=== PATIENT | male | born 1950 | race Caucasian/White ===

== ENCOUNTER 2018-06-20 11:07 | Inpatient (IN) | payer MEDICARE ==
[~2018-06-20] VITALS: Ht 160 cm; Wt 61.0 kg
[~2018-06-20 11:07] MED LIST: ACE325 PO; AUG875 PO; CALC500T42 PO; MULT-820 PO; NIC21T TD; OXYC20TA86 PO; PER PO; PRED-314 PO
--- NOTE | 2018-06-20 11:15 | ER Report ---
History and Physical Time Seen By MD: 11:15 HPI/ROS CHIEF COMPLAINT: Cough and shortness of breath HISTORY OF PRESENT ILLNESS: This is a 67-year-old male who presents to emergency department for a cough and shortness of breath. Patient states that over the last 3 weeks he's had increased shortness of breath, with a moist and nonproductive cough. Decreased energy, loss of appetite, or last several days he's had increased swelling in his lower extremities. He has a history of alcohol abuse however he has almost completely eliminated alcohol, he is also cut back on smoking cigarettes, he was a one pack a day for 40 years, now smokes about 2-2-1/2 packs per week. He is very cachectic appearing, working hard to breathe, using accessory muscles. Speaking in 4-5 word sentences. He denies fevers or chills. No rashes. No headaches. Denies chest pain. REVIEW OF SYSTEMS: Constitutional: No fever, no chills. Eyes: No discharge. ENT: No sore throat. Cardiovascular: No chest pain, no palpitations. Respiratory: As above. Gastrointestinal: No abdominal pain, no vomiting. Genitourinary: No hematuria. Musculoskeletal: No back pain. Skin: No rashes. Neurological: No headache. Allergies: Coded Allergies: No Known Drug Allergies (Verified , 01/28/17) Home Meds Reported Medications Fluticasone Prop 50 Mcg Ns (FLONASE 50 MCG NS) 16 Gm [place].susp, 1 SPRAY NS BID, BOT 06/20/18 Past Medical/Surgical History The patient has a past medical and surgical history of headaches, heavy smoking history, pneumonia, no diagnosis of COPD thus far, slow urinary stream, arthritis, numbness down both legs due to an injury, dentures, wears glasses, history of alcohol abuse however very minimal alcohol intake currently, ulnar nerve transposition, back surgery, tonsillectomy. Reviewed Nurses Notes: Yes Hx Smoking: Yes Smoking Status: Current: Every Day Smoker Hx Substance Use Disorder: No Hx Alcohol Use: Yes Constitutional Vital Sign - Last 24 Hours 06/20/18 06/20/18 06/20/18 06/20/18 11:07 11:13 11:13 11:16 Temp 97.9 Pulse ??? 118 Resp 30 B/P (MAP) 118/110 118/110 (113) 105/91 (96) Pulse Ox 78 O2 Delivery Room Air 06/20/18 06/20/18 06/20/18 06/20/18 11:22 11:30 11:31 11:37 Pulse 118 116 Resp 29 35 B/P (MAP) 105/87 (93) Pulse Ox 98 93 O2 Flow Rate 2.0 06/20/18 06/20/18 06/20/18 06/20/18 11:38 11:38 11:47 11:52 Pulse 121 118 Resp 24 B/P (MAP) 112/94 (100) Pulse Ox 89 100 O2 Delivery Nasal Cannula O2 Flow Rate 1.5 06/20/18 06/20/18 06/20/18 06/20/18 12:00 12:07 12:22 12:30 Pulse 112 111 107 Resp 18 25 27 B/P (MAP) 125/98 (107) Pulse Ox 88 95 94 Physical Exam General Appearance: The patient is alert, has no immediate need for airway protection and no signs of toxicity, working hard to breathe. Eyes: Pupils equal and round no pallor or injection. ENT, Mouth: Mucous membranes are dry. Respiratory: Diminished throughout, very faint end expiratory wheezes in the upper lobes. Using accessory muscles to breathe, strep throat clavicular and intercostal retractions. Cardiovascular: Regular rate and rhythm, distant, no murmurs, clicks or rubs. Gastrointestinal: Abdomen is soft and non tender, no masses, bowel sounds normal. Neurological: Alert and oriented 4. Moving all extremities. Following all commands. No focal neuro deficits. Skin: Warm and dry, no rashes. Musculoskeletal: Neck is supple non tender. Extremities are nontender, nonswollen and have full range of motion. DIFFERENTIAL DIAGNOSIS: After history and physical exam differential diagnosis was considered for shortness of breath including but not limited to pulmonary infectious process, COPD, asthma, pulmonary embolus and congestive heart failure. Medical Decision Making Data Points Result Diagram: 06/20/18 0000 06/20/18 0000 Laboratory Hematology Test 06/20/18 00:00 Red Blood Count 4.84 M/uL (4.00-5.60) Mean Corpuscular Volume 98.5 fL (80.0-96.0) Mean Corpuscular Hemoglobin 32.6 pg (26.0-33.0) Mean Corpuscular Hemoglobin Concent 33.1 g/dL (32.0-36.0) Red Cell Distribution Width 14.3 % (11.5-14.5) Mean Platelet Volume 7.2 fL (7.2-11.1) Neutrophils (%) (Auto) 81.1 % (39.4-72.5) Lymphocytes (%) (Auto) 10.4 % (17.6-49.6) Monocytes (%) (Auto) 7.8 % (4.1-12.4) Eosinophils (%) (Auto) 0.1 % (0.4-6.7) Basophils (%) (Auto) 0.6 % (0.3-1.4) Nucleated RBC Relative Count (auto) 0.0 /100WBC Neutrophils # (Auto) 9.5 K/uL (2.0-7.4) Lymphocytes # (Auto) 1.2 K/uL (1.3-3.6) Monocytes # (Auto) 0.9 K/uL (0.3-1.0) Eosinophils # (Auto) 0.0 K/uL (0.0-0.5) Basophils # (Auto) 0.1 K/uL (0.0-0.1) Nucleated RBC Absolute Count (auto) 0.00 K/uL Sodium Level 123 mmol/L (137-145) Potassium Level 5.1 mmol/L (3.5-5.0) Chloride Level 87 mmol/L (98-107) Carbon Dioxide Level 29 mmol/L (22-30) Blood Urea Nitrogen 22 mg/dl (9-21) Creatinine 0.70 mg/dl (0.66-1.25) Glomerular Filtration Rate Calc > 60.0 Random Glucose 131 mg/dl (75-110) Lactate 2.6 mmol/L (0.7-2.1) Calcium Level 9.0 mg/dl (8.4-10.2) Total Bilirubin 1.1 mg/dl (0.2-1.3) Aspartate Amino Transf (AST/SGOT) 31 U/L (0-35) Alanine Aminotransferase (ALT/SGPT) 19 U/L (0-56) Alkaline Phosphatase 74 U/L (0-126) Troponin I 0.034 ng/ml B-Type Natriuretic Peptide 790 pg/ml (0-100) Total Protein 6.8 g/dl (6.3-8.2) Albumin 4.3 g/dl (3.5-5.0) Chemistry Test 06/20/18 00:00 White Blood Count 11.7 k/uL (4.5-11.0) Red Blood Count 4.84 M/uL (4.00-5.60) Hemoglobin 15.8 g/dL (14.0-18.0) Hematocrit 47.7 % (42.0-52.0) Mean Corpuscular Volume 98.5 fL (80.0-96.0) Mean Corpuscular Hemoglobin 32.6 pg (26.0-33.0) Mean Corpuscular Hemoglobin Concent 33.1 g/dL (32.0-36.0) Red Cell Distribution Width 14.3 % (11.5-14.5) Platelet Count 190 K/uL (150-450) Mean Platelet Volume 7.2 fL (7.2-11.1) Neutrophils (%) (Auto) 81.1 % (39.4-72.5) Lymphocytes (%) (Auto) 10.4 % (17.6-49.6) Monocytes (%) (Auto) 7.8 % (4.1-12.4) Eosinophils (%) (Auto) 0.1 % (0.4-6.7) Basophils (%) (Auto) 0.6 % (0.3-1.4) Nucleated RBC Relative Count (auto) 0.0 /100WBC Neutrophils # (Auto) 9.5 K/uL (2.0-7.4) Lymphocytes # (Auto) 1.2 K/uL (1.3-3.6) Monocytes # (Auto) 0.9 K/uL (0.3-1.0) Eosinophils # (Auto) 0.0 K/uL (0.0-0.5) Basophils # (Auto) 0.1 K/uL (0.0-0.1) Nucleated RBC Absolute Count (auto) 0.00 K/uL Glomerular Filtration Rate Calc > 60.0 Lactate 2.6 mmol/L (0.7-2.1) Calcium Level 9.0 mg/dl (8.4-10.2) Total Bilirubin 1.1 mg/dl (0.2-1.3) Aspartate Amino Transf (AST/SGOT) 31 U/L (0-35) Alanine Aminotransferase (ALT/SGPT) 19 U/L (0-56) Alkaline Phosphatase 74 U/L (0-126) Troponin I 0.034 ng/ml B-Type Natriuretic Peptide 790 pg/ml (0-100) Total Protein 6.8 g/dl (6.3-8.2) Albumin 4.3 g/dl (3.5-5.0) EKG/Imaging EKG Interpretation 12 lead EKG: Time of EKG 1124. Rhythm: Sinus tachycardia, ventricular rate 116 bpm. [place]: normal QRS: normal ST segments: No ST depression or elevation identified. Significant amount of artifact. No previous EKGs for comparison. Imaging Location: [facility] Patient: Winston Morrison : 1950 Visit/Account:[id number] Date of Sevice: 06/20/2018 Single view of the chest Indication: Dyspnea. Comparison: X-ray examination of the chest January 28, 2017 Findings: Heart size within normal limits. Pulmonary hyperinflation with relative lucency indicative of changes from emphysema. Blunting is seen of the costophrenic sulci bilaterally, unchanged and could represent pleural thickening at the right base. No definite effusion or pneumothorax. No acute bony finding. IMPRESSION: 1. Stable parenchymal changes from emphysema without change or acute finding. Report Dictated By: Joel Sargent MD at 06/20/2018 12:05 PM Report E-Signed By: Joel Sargent MD at 06/20/2018 12:06 PM WSN:[facility] ED Course/Re-evaluation Clinical Indication for ER IV: IV Access ED Course The patient was admitted to room. A history and physical were obtained. Differential diagnoses were considered. An IV was started. A CBC, CMP, troponin, BNP were obtained.CBC showing white count of 11.7 with a left shift, chemistry showing sodium 123, potassium 5.1, lactate 2.6, troponin 0.034, BNP 790. EKG showing sinus tachycardia with rate of 116 bpm. Patient was given an hour-long DuoNeb, tolerated very well, improved however still having mild shortness of br eath. Two-view chest x-ray showing Stable parenchymal changes from emphysema without change or acute finding. I reviewed the results with the patient and his son who is at the bedside, I also spoke with Dr. Yanet cunha as noted below, he's accepted patient in the hospitalist services. Patient was given 125 mg IV site Medrol, was also given 100 mg by mouth doxycycline. 06/20/2018 12:40:16 pm I did speak with Dr. Yanet cunha, the hospitalist transportation analyst, he and I reviewed the case, he is except the patient and the hospitalist services, the patient will be admitted to medical floor for COPD and emphysema. Decision to Disposition Date: Jun 20, 2018 Decision to Disposition Time: 12:40 Depart Departure Latest Vital Signs Vital Signs Date Time Temp Pulse Resp B/P (MAP) Pulse Ox O2 Delivery O2 Flow Rate FiO2 06/20/18 12:30 107 27 94 06/20/18 12:00 125/98 (107) 06/20/18 11:38 Nasal Cannula 1.5 06/20/18 11:13 97.9 Impression: Primary Impression: COPD (chronic obstructive pulmonary disease) Condition: Improved Disposition: Admitted from ER Referrals: WILLARD GIRON DO (PCP) Problem Qualifiers Primary Impression: COPD (chronic obstructive pulmonary disease) COPD type: emphysema Emphysema type: unspecified Qualified Codes: J43.9 - Emphysema, unspecified 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
[2018-06-20] MEDS ORDERED: methylPREDNIS SUCC 125 MG/2ML IVP ONE (11:25)
[2018-06-20] MEDS ORDERED: FLUT16SP19 NS (11:35)
[2018-06-20] MEDS: ALBUTEROL/IPRATROPIUM 3 ML NEB NEB SCH ×3 (11:38→12:05)
[2018-06-20 11:44] LABS: PLATELET COUNT, AUTOMATED 190 K/uL (150-450)
--- NOTE | 2018-06-20 12:10 | RADIOLOGY IMAGING REPORT ---
FACILITY: [facility] PATIENT NAME: Winston Morrison : 1950 MR: [id number] V: [id number] EXAM DATE: ORDERING PHYSICIAN: MATEO BECK TECHNOLOGIST: Location: [facility] Patient: Winston Morrison : 1950 Visit/Account:[id number] Date of Sevice: 06/20/2018 Single view of the chest Indication: Dyspnea. Comparison: X-ray examination of the chest January 28, 2017 Findings: Heart size within normal limits. Pulmonary hyperinflation with relative lucency indicative of changes from emphysema. Blunting is see n of the costophrenic sulci bilaterally, unchanged and could represent pleural thickening at the righ t base. No definite effusion or pneumothorax. No acute bony finding. IMPRESSION: 1. Stable parenchymal changes from emphysema without change or acute finding. Report Dictated By: Joel Sargent MD at 06/20/2018 12:05 PM Report E-Signed By: Joel Sargent MD at 06/20/2018 12:06 PM WSN:[id number]
--- NOTE | 2018-06-20 12:17 | EKG ---
FACILITY: [facility] PATIENT NAME: LOLA VINCENT : [id number] MR: [id number] V: [id number] EXAM DATE: ORDERING PHYSICIAN: MATEO BECK TECHNOLOGIST: Test Reason : SOB Blood Pressure : / mmHG Vent. Rate : 116 BPM Atrial Rate : 116 BPM P-R Int : 152 ms QRS Dur : 090 ms QT Int : 320 ms P-R-T Axes : 000 203 257 degrees QTc Int : 444 ms Sinus tachycardia with significant artifact Low voltage QRS Lateral infarct , age undetermined ST and T wave abnormality, consider inferior ischemia Abnormal ECG No previous ECGs available Confirmed by Rashawn Rollins ([id number]) on 06/20/2018 8:04:26 PM Referred By: Confirmed By:Rashawn Zuniga
[2018-06-20] MEDS ORDERED: DOXYCYCLINE HYCL 100 MG TAB PO ONE (12:40)
[2018-06-20 13:20] VITALS: BP 137/80
[2018-06-20] MEDS ORDERED: FLUSH 10 ML SYR IVP PRN (13:40)
[2018-06-20] MEDS ORDERED: ACETAMINOPHEN 325 MG TAB PO PRN (13:40)
[2018-06-20] MEDS ORDERED: FUROSEMIDE 40 MG/4 ML VIAL IVP ONE (13:40)
[2018-06-20] MEDS: TAMSULOSIN HCL 0.4 MG CAP PO SCH (16:32)
[2018-06-20 19:16] VITALS: BP 104/65
[2018-06-20] MEDS ORDERED: NS(*) 0.9% 1000 ML BAG 1,000 ML IV ONE ×2 (19:50→22:15)
[2018-06-20] MEDS: DOXYCYCLINE HYCL 100 MG TAB PO SCH (20:58)
[2018-06-20] MEDS ORDERED: ALBUTEROL/IPRATROPIUM 3 ML NEB NEB PRN (21:20)
--- NOTE | 2018-06-20 21:30 | History & Physical ---
History of Present Illness Chief Complaint SOB History of Present Illness 67M presented with several weeks or months of worsening dyspnea, more recent LE swelling. PMHx significant for tobacco abuse, emphysema but minimal health care. Reports inability to lie down flat for several months or years. Noted LE edema which prompted him to get more evaluation. Continues to smoke daily. In ER noted to be hypoxic with severe LE edema. Mildly elevated WBC, no fever, some clear sputum. Not on O2 at baseline but likely due to limited medical interactions. CXR no acute process, BNP elevated at 800. Admitted for further evaluation and treatment. History Problems: (1) COPD (chronic obstructive pulmonary disease) Status: Chronic (2) CHF (congestive heart failure) Home Meds Reported Medications Fluticasone Prop 50 Mcg Ns (FLONASE 50 MCG NS) 16 Gm [place].susp, 1 SPRAY NS BID, BOT 06/20/18 Allergies: Coded Allergies: No Known Drug Allergies (Verified , 01/28/17) Patient History: FH: colon cancer MOTHER FH: heart attack FATHER FH: heart disease FATHER FH: pancreatic cancer BROTHER OR SISTER, FH: renal failure FATHER Hx Smoking: Yes (2.5 pack per week) Smoking Status: Current: Every Day Smoker Hx Alcohol Use: Yes (HX ) Hx Substance Use Disorder: No Review of Systems All Systems Reviewed/Normal: Yes, Except as Noted Constitutional: No Fever, No Weight Loss Respiratory: Shortness of Breath; No Wheezing Gastrointestinal: No Nausea, No Vomiting Exam Vital Signs Vital Signs Date Time Temp Pulse Resp B/P (MAP) Pulse Ox O2 Delivery O2 Flow Rate FiO2 06/20/18 19:16 98.9 100 18 104/65 (78) 90 3.0 06/20/18 14:23 Nasal Cannula General Appearance: Awake, No Acute Distress, Afebrile (emaciated with temporal wasting) Neuro: No Gross deficits ENT: Normal (no dentition) Cardiovascular: Normal Rhythm & Peripheral Pulses Respiratory: Other (diminished breath sounds) GI: Abd Soft and Non-Tender Extremities: Soft and Non Tender, Warm, Perfused, Edema (severe b/l LE pitting edema) Medical Decision Making Data Points Result Diagram: 06/20/18 0000 06/20/18 0000 Assessment and Plan Problems: (1) Acute respiratory failure with hypoxemia Assessment & Plan: Likely some baseline needs. Will very likely need oxygen at discharge. Supplemental O2 given, PRN breathing treatments, begin prednisone and doxycycline for suspected COPD exacerbation. (2) Moderate to severe pulmonary hypertension Assessment & Plan: Severe pulmonary hypertension and tricuspid regurgitation w ith flattening of septum on ECHO. Appears to have developed some R heart failure due to pulmonary hypertension. Etiology likely chronic hypoxia given appearance of CXR and smoking history. Trial of diuresis. (3) COPD (chronic obstructive pulmonary disease) Status: Chronic Assessment & Plan: No previous diagnosis, given history and emphysema on CXR likely has COPD. (4) Hyponatremia Assessment & Plan: Initially thought to be hypervolemic but limited response to diuretic and increased lactic acid with decreased BP. Will give 1L bolus and recheck BMP and lactic acid. (5) Lactic acidosis Assessment & Plan: Unclear etiology, worsened with trial diuresis and BP drop. NS bolus started and will recheck. Venous Thromboembolism Antithrombotics Is Pt On Any Antithrombotics?: Yes Exam Sepsis Risk: Severe Sepsis Risk Problem Qualifiers (1) COPD (chronic obstructive pulmonary disease): COPD type: emphysema Emphysema type: unspecified Qualified Codes: J43.9 - E mariano, unspecified STAS TOMLINSON DO Jun 20, 2018 21:30
--- NOTE | 2018-06-20 22:46 | EKG ---
FACILITY: [facility] [place] PATIENT NAME: LOLA VINCENT : [id number] MR: [id number] V: [id number] EXAM DATE: ORDERING PHYSICIAN: STAS STREET TECHNOLOGIST: ARIEL Test Reason : TACHY Blood Pressure : / mmHG Vent. Rate : 126 BPM Atrial Rate : 126 BPM P-R Int : 192 ms QRS Dur : 098 ms QT Int : 278 ms P-R-T Axes : 000 020 -81 degrees QTc Int : 402 ms Sinus tachycardia with fusion complexes Low voltage QRS Possible Anterolateral infarct , age undetermined Abnormal ECG Confirmed by Stas Rollins ([id number]) on 06/21/2018 7:55:37 AM Referred By: Confirmed By:Stas Street
[2018-06-20] MEDS ORDERED: IOPAMIDOL 76% 150 ML INFUS BTL 150 ML ONE (22:52)
[2018-06-20] MEDS ORDERED: NS(*) 0.9% 50 ML BAG 50 ML ONE (22:52)
[2018-06-20 23:20] VITALS: BP 128/79
--- NOTE | 2018-06-21 00:31 | RADIOLOGY IMAGING REPORT ---
[facility] PATIENT NAME: Winston Morrison : 1950 MR: [id number] V: [id number] EXAM DATE: [id number] ORDERING PHYSICIAN: STAS STREET TECHNOLOGIST: Location: [facility] [place] Patient: Winston Morrison : 1950 Visit/Account:[id number] Date of Sevice: 06/20/2018 CT PE DATE: 06/21/2018 12:16 AM INDICATION: Shortness of breath, Tachycardia, Bilateral Lower extremity Edema. COMPARISON: Same-day chest radiograph, CTA chest 12/28/2011. TECHNIQUE: Axial CT angiogram was obtained through the chest with intravenous contrast. Sagittal an d coronal MPR and MIP coronal reformations were also generated. 75 mL isovue 370. One of the follow ing dose optimization techniques was utilized in the performance of this exam: Automated exposure con trol; adjustment of the mA and/or kV according to the patient's size; or use of an iterative reconst ruction technique. Specific details can be referenced in the facility's radiology CT exam operationa l policy. FINDINGS: Thyroid / Thoracic Inlet: 6 mm hypoattenuating right thyroid nodule. No adenopathy. Pulmonary Arteries: There are peripheral filling defects in segmental and subsegmental pulmonary art eries of the lower lobes bilaterally as can be seen in the right lobe on image 85 series 4 and in the left lobe on image 78. No definite acute pulmonary emboli. Heart and Aorta: Normal-size heart with trace pericardial fluid. Moderate coronary artery calcifica tion. Dilated ascending aorta measuring 4 cm in diameter. Mild aortic atherosclerosis. Mediastinum and Candace: No lymphadenopathy. Lungs and Pleura: No pleural effusion or pneumothorax. Severe emphysema with multifocal pleural par enchymal changes. No definite suspicious consolidation. Breast and Axilla: No axillary lymphadenopathy. Upper Abdomen: No visualized acute abnormality. Bones and Soft Tissues: No suspicious osseous or soft tissue abnormality. Patient appears cachectic . IMPRESSION: 1. Filling defects in the lower lobe pulmonary arteries bilaterally are peripheral and do not have t he classic appearance of acute pulmonary emboli. These may be artifactual or represent remote pulmon patricia emboli. 2. Severe emphysema. 3. Dilated ascending aorta measuring 4 cm in diameter. 4. Moderate coronary artery calcification. Report Dictated By: Silverio Kurtz MD at 06/21/2018 12:16 AM Report E-Signed By: Silverio Kurtz MD at 06/21/2018 12:27 AM WSN:[id number]
[2018-06-21 03:57] VITALS: BP 110/72
[2018-06-21 05:19] LABS: PLATELET COUNT, AUTOMATED 148 K/uL (150-450)
[2018-06-21 07:09] VITALS: BP 126/94
[2018-06-21] MEDS ORDERED: FUROSEMIDE 40 MG/4 ML VIAL IVP SCH (09:00)
[2018-06-21] MEDS ORDERED: ALBUTEROL 2.5 MG/3 ML NEB NEB PRN (09:40)
[2018-06-21] MEDS: DOXYCYCLINE HYCL 100 MG TAB PO SCH ×2 (09:44→19:57)
[2018-06-21] MEDS: predniSONE 20 MG TAB PO SCH (09:44)
[2018-06-21] MEDS: TAMSULOSIN HCL 0.4 MG CAP PO SCH (09:44)
[2018-06-21] MEDS: ENOXAPARIN 40 MG/0.4ML SYR SC SCH (09:45)
[2018-06-21] MEDS: guaiFENesin 600 MG TABCR PO SCH ×2 (10:08→19:57)
[2018-06-21] MEDS: SALMETEROL/FLUTIC 500/50 1 INH INH SCH ×2 (10:22→16:57)
[2018-06-21] MEDS: ALBUTEROL/IPRATROPIUM 3 ML NEB NEB SCH ×3 (10:23→16:57)
--- NOTE | 2018-06-21 11:35 | Hospitalist Progress Note ---
Subjective Progress Notes Subjective He reports some improvement in his WOB. No reported concerns from staff. Physical Exam Vital Signs Date Time Temp Pulse Resp B/P (MAP) Pulse Ox O2 Delivery O2 Flow Rate FiO2 06/21/18 10:27 95 20 06/21/18 10:20 94 Nasal Cannula 2.5 06/21/18 07:09 98.1 126/94 (105) Intake and Output 06/21/18 07:00 Intake Total 2240 ml Output Total 1300 ml Balance 940 ml Intake Oral 240 ml IV Total 2000 ml Output Urine Total 1300 ml # Voids 1 # Bowel Movements 1 General Appearance: Alert, Awake, Other (mild to mod wob) Respiratory: Clear to Auscultation (But not moving air to lower half of lungs) Extremities: Edema (1-2+ pitting to mid fields. Reactive erythema in ankles/feet) Result Diagram: 06/21/1851006/21/18510 Assessment and Plan Problems: (1) COPD (chronic obstructive pulmonary disease) Status: Acute Assessment & Plan: He presented with several weeks to months of progressive dyspnea and recent LE edema. No previous diagnosis of COPD, but given history of smoking and severe emphysema findings CT he has COPD. On IV steroids, doxycycline and DuoNeb prn. Will change to scheduled DuoNeb, prn albuterol and start scheduled Advair. (2) Moderate to severe pulmonary hypertension Status: Acute Assessment & Plan: Severe pulmonary hypertension and tricuspid regurgitation with flattening of septum on ECHO. Appears to have developed some R heart failure due to pulmonary hypertension. Etiology likely chronic hypoxia and severe COPD. O2 and treatment for COPD exacerbation will likely help the LE edema. At this point, diuresis has not proved helpful, but may in the future. (3) Acute respiratory failure with hypoxemia Status: Acute Assessment & Plan: He will need oxygen at discharge. See above. (4) Hyponatremia Assessment & Plan: Unchanged after diuresis and then fluid bolus. Will check urine Na/Osm and serum Osm. Likely, SIADH related to severe COPD. (5) Lactic acidosis Assessment & Plan: Likely, secondary to overall intravascular depletion. Initially, thought to be hypervolemic but limited response to diuretic and increased lactic acid with decreased BP. He was given fluid bolus which brought the lactate down to normal. Exam Sepsis Risk: No Definite Risk Problem Qualifiers (1) COPD (chronic obstructive pulmonary disease): COPD type: emphysema Emphysema type: unspecified Qualified Codes: J43.9 - Emphysema, unspecified HANK KUHN MD Jun 21, 2018 11:35
[2018-06-21 12:57] VITALS: Ht 160 cm; Wt 61.0 kg
[2018-06-21 14:39] VITALS: BP 132/77
[2018-06-21] MEDS: TIOTROPIUM BROM INH 18 MCG/CAP INH SCH (18:30)
[2018-06-21] MEDS: LEVALBUTEROL 1.25 MG/3 ML NEB NEB PRN ×2 (19:38→23:13)
[2018-06-21 19:50] VITALS: BP 102/67
[2018-06-22 03:46] VITALS: BP 124/87
[2018-06-22] MEDS: SALMETEROL/FLUTIC 500/50 1 INH INH SCH ×2 (05:48→16:57)
[2018-06-22] MEDS: LEVALBUTEROL 1.25 MG/3 ML NEB NEB PRN ×4 (05:49→21:08)
[2018-06-22 06:25] LABS: PLATELET COUNT, AUTOMATED 179 K/uL (150-450)
[2018-06-22 07:57] VITALS: BP 129/91
[2018-06-22] MEDS: predniSONE 20 MG TAB PO SCH (09:11)
[2018-06-22] MEDS: TAMSULOSIN HCL 0.4 MG CAP PO SCH (09:11)
[2018-06-22] MEDS: DOXYCYCLINE HYCL 100 MG TAB PO SCH ×2 (09:11→20:30)
[2018-06-22] MEDS: guaiFENesin 600 MG TABCR PO SCH ×2 (09:12→20:29)
[2018-06-22] MEDS: ENOXAPARIN 40 MG/0.4ML SYR SC SCH (09:12)
--- NOTE | 2018-06-22 10:44 | Hospitalist Progress Note ---
Subjective Progress Notes Subjective He reports some slight improvements in activity tolerance. Physical Exam Vital Signs Date Time Temp Pulse Resp B/P (MAP) Pulse Ox O2 Delivery O2 Flow Rate FiO2 06/22/18 09:00 84 06/22/18 07:57 Nasal Cannula 2.0 06/22/18 07:57 98.6 20 129/91 (104) 06/22/18 05:50 97 Intake and Output 06/22/18 07:00 Intake Total 360 ml Output Total 300 ml Balance 60 ml Intake Oral 360 ml Output Urine Total 300 ml General Appearance: Alert, Awake Cardiovascular: Regular Rate and Rhythm (distant tones) Respiratory: Other (very diminished breath sounds bilaterally with prolonged expiratory phase) Extremities: Edema (2+ both LE to just below knees) Result Diagram: 06/22/1860306/22/18603 Assessment and Plan Problems: (1) COPD (chronic obstructive pulmonary disease) Status: Acute Assessment & Plan: He presented with several weeks to months of progressive dyspnea and recent LE edema. No previous diagnosis of COPD, but given history of smoking and severe emphysema findings CT he has quite advanced COPD. He is currently on oral steroids, doxycycline and scheduled Advair. He does have Xopenex as well (started due to tachycardia with albuterol). (2) Moderate to severe pulmonary hypertension Status: Acute Assessment & Plan: Severe pulmonary hypertension and tricuspid regurgitation with flattening of septum on ECHO. Appears to have developed some right heart failure due to pulmonary hypertension. Etiology likely chronic hypoxia and severe COPD. O2 and treatment for COPD exacerbation may help the LE edema. At this point, diuresis has not proved helpful. (3) Acute respiratory failure with hypoxemia Status: Acute Assessment & Plan: He will need oxygen at discharge. See above. (4) Hyponatremia Assessment & Plan: Improved. He may have some component of SIADH with his lung disease. (5) Lactic acidosis Assessment & Plan: Likely, secondary to overall intravascular depletion and hypoxia. Initially, thought to be hypervolemic, but limited response to diuretic and increased lactic acid with decreased BP. He was given fluid bolus which brought the lactate down to normal. Exam Sepsis Risk: No Definite Risk Problem Qualifiers (1) COPD (chronic obstructive pulmonary disease): COPD type: emphysema Emphysema type: unspecified Qualified Codes: J43.9 - Emphysema, unspecified SATHYA MUSE MD Jun 22, 2018 10:44
--- NOTE | 2018-06-22 11:31 | Antimicrobial Stewardship ---
Antimicrobial Stewardship Empiricly appropriate: Yes (COPD Exacerbation) Significant PMH: Yes (COPD, pulmonary HTN, CHF, hyponatremia) Support empiric regimen: Yes (Doxycycline) Approriate Cultures done: Yes (Blood Cx NGTD) Determine cumulative duration: 5-7 days Comment 67 yo M with COPD, pulmonary HTN, CAD, CHF, and hyponatremia. Pt presented with SOB. COPD exacerbation Tmax afebrile WBC 11.7 on admission, now wnl Blood Cx x 2 NGTD Started on Doxycycline 100 mg PO BID. Will continue to monitor. Treat for 3-7 days. Vanessa Lawrence, PharmD, BCOP VANESSA LAWRENCE Jun 22, 2018 11:31
[2018-06-22 12:00] VITALS: BP 122/78
[2018-06-22] MEDS ORDERED: INFLUENZA VIRUS VAC 0.5ML SYR IM ONLY ONE (13:40)
[2018-06-22 15:07] VITALS: BP 115/85
[2018-06-22] MEDS: TIOTROPIUM BROM INH 18 MCG/CAP INH SCH (16:57)
[2018-06-22 18:45] VITALS: BP 134/83
[2018-06-23 02:23] VITALS: BP 122/86
[2018-06-23] MEDS: SALMETEROL/FLUTIC 500/50 1 INH INH SCH (05:41)
[2018-06-23] MEDS: LEVALBUTEROL 1.25 MG/3 ML NEB NEB PRN (05:41)
[2018-06-23] MEDS: ENOXAPARIN 40 MG/0.4ML SYR SC SCH (09:00)
[2018-06-23] MEDS: DOXYCYCLINE HYCL 100 MG TAB PO SCH (10:07)
[2018-06-23] MEDS: guaiFENesin 600 MG TABCR PO SCH (10:07)
[2018-06-23] MEDS: TAMSULOSIN HCL 0.4 MG CAP PO SCH (10:07)
[2018-06-23] MEDS: predniSONE 20 MG TAB PO SCH (10:07)
[2018-06-23] MEDS ORDERED: PRED-1 PO (10:29)
[2018-06-23] MEDS ORDERED: FLUT1DIS29 INH (10:29)
[2018-06-23] MEDS ORDERED: TIO18R INH (10:29)
[2018-06-23] MEDS ORDERED: Tamsulosin Hcl PO (10:29)
[2018-06-23] MEDS ORDERED: LEVA15HF IH (10:29)
--- NOTE | 2018-06-23 10:33 | Hospitalist Depart ---
Discharge Summary Reason for Hosp/Final Diag: (1) COPD (chronic obstructive pulmonary disease) Status: Acute Hospital Course & Plan: He presented with shortness of breath. His CT scan shows advanced emphysema. He improved with steroids and nebulizers. He will discharge on a prednisone taper and inhalers. He is also encouraged to follow up in pulmonary rehab. (2) Moderate to severe pulmonary hypertension Status: Acute Hospital Course & Plan: Severe pulmonary hypertension and tricuspid regurgitation with flattening of septum on ECHO. It appears to have developed some right heart failure due to pulmonary hypertension. He has been started on oxygen. (3) Acute respiratory failure with hypoxemia Status: Acute Hospital Course & Plan: Resolved. (4) Hyponatremia Hospital Course & Plan: He has had chronic hyponatremia and his levels are near his baseline. (5) Lactic acidosis Hospital Course & Plan: Resolved with treatment of COPD. Departure Weight (Pounds): 134 Weight (Ounces): 6.0 Result Diagram: 06/22/1860306/23/18 0539 Condition: Improved Discharge: Home, Self Care Discharge Instructions Home Meds Active Scripts Prednisone 10 Mg Tab (PREDNISONE 10 MG TAB) 10 Mg Tablet, 10 MG PO DIRECTED, #30 TAB Take 4 tab daily x 3 days, then 3 tab daily x 3 days, then 2 tab daily x 3 days, then 1 tab daily x 3 days. Prov:DIONICIO RODRÍGUEZ 06/23/18 Levalbuterol Tartrate (XOPENEX HFA) 15 Gm Hfa.aer.ad, 15 GM IH Q2H PRN for S HORTNESS OF BREATH, #1 INHALER Prov:ANNEDIONICIO DO 06/23/18 [Tamsulosin Hcl(*) 0.4 Mg Cap] 0.4 MG CAP No Conflict Check, 0.4 MG PO QDAY, #30 CAP Prov:ANNEDIONICIO DO 06/23/18 Tiotropium [place] (SPIRIVA) 18 Mcg/Cap Inh, 0 MCG INH HS, #1 INH Prov:ANNEDIONICIO DO 06/23/18 Fluticasone/Salmeterol (ADVAIR 500-50 DISKUS) 1 Each Disk.w.dev, 0 EACH INH BIDR, #1 INHALER Prov:DIONICIO RODRÍGUEZ DO 06/23/18 Reported Medications Fluticasone Prop 50 Mcg Ns (FLONASE 50 MCG NS) 16 Gm [place].susp, 1 SPRAY NS BID, BOT 06/20/18 Diet: Regular Activity: As Tolerated Special Instructions: Follow up with Dr. Middleton on WednesdayJune 27 at 9:40AM. Copies to: DIONICIO MIDDLETON MD ; Venous Thromboembolism Antithrombotics Is Pt On Any Antithrombotics?: Yes Problem Qualifiers (1) COPD (chronic obstructive pulmonary disease): COPD type: emphysema Emphysema type: unspecified Qualified Codes: J43.9 - Emphysema, unspecified DIONICIO RODRÍGUEZ DO Jun 23, 2018 10:33
[2018-06-23 10:58] VITALS: BP 126/64
[2018-06-23] MEDS ORDERED: IPR14R INH (13:10)
== END 2018-06-23 12:30 | disposition home or self-care (01) | DRG 189 ==
LOC: ER 11:12 → MED 12:41
PROVIDERS: ADMIT Internal Medicine; ATTEND Internal Medicine
DX: J96.01 Acute respiratory failure with hypoxia (principal); E22.2 Syndrome of inappropriate secretion of antidiuretic hormone; E87.2 Acidosis; I07.1 Rheumatic tricuspid insufficiency; I50.811 Acute right heart failure; J43.9 Emphysema, unspecified; I27.20 Pulmonary hypertension, unspecified; F17.210 Nicotine dependence, cigarettes, uncomplicated; R20.0 Anesthesia of skin; F10.11 Alcohol abuse, in remission
CPT/HCPCS: 36415; 71045; 71275; 81001; 82040; 82247; 82310; 82374; 82435; 82565; 82947; 83605; 83880; 83935; 84075; 84132; 84134; 84155; 84295; 84300; 84443; 84450; 84460; 84484; 84520; 85025; 87040; 93005; 93306; 94640; 94667; 94668; 96374; 96375; 99285; J1650; J1940; J2930; J3535; J7030; J7050; J7512; Q9967

== ENCOUNTER 2018-06-24 14:57 | Outpatient (RCR) | payer MEDICARE ==
[2018-06-21 12:57] VITALS: BMI 23.9
[~2018-06-24 14:57] MED LIST changes: +FLUT16SP19 NS; +FLUT1DIS29 INH; +IPR14R INH; +LEVA15HF IH; +PRED-1 PO; +TIO18R INH; +Tamsulosin Hcl PO
--- NOTE | 2018-07-01 15:19 | Transitional Care Management ---
TCM Discharge Criteria Transitional Care Comment: 06/24 doing well since discharge, got all medications filled and has oxygen. Has follow up with Dr Tadeo on Wed. Son Alf helped him remeber how to use inhaler and has used once since going home. Still has cough and occational SOB. Wants to go to pulm rehab and will ask Carlyle about that. Has not smoked since being home. 07/01 Pt was readmitted 06/28. Plan is for dc to [facility]. DC from [facility] program. CLEMENCIA JONES Jul 01, 2018 15:19
== END 2018-07-01 16:32 | disposition home or self-care (01) ==
LOC: TCM 14:57
PROVIDERS: ATTEND Nurse Practitioner
DX: Z02.9 Encounter for administrative examinations, unspecified (principal)

== ENCOUNTER 2018-06-28 18:38 | Inpatient (IN) | payer MEDICARE ==
[2018-06-21 12:57] VITALS: Ht 185.4 cm; Wt 63.5 kg
[~2018-06-28] VITALS: Ht 185.4 cm; Wt 63.5 kg
[2018-06-28] MEDS ORDERED: NS(*) 0.9% 500 ML BAG 500 ML IV ONE (18:54)
--- NOTE | 2018-06-28 18:54 | ER Report ---
History and Physical Time Seen By MD: 18:41 HPI/ROS CHIEF COMPLAINT: Altered mental status HISTORY OF PRESENT ILLNESS: Patient was recently seen on June 20 for cough and shortness of breath. The patient lives by himself, but has a son and ex- checks on him frequently. He has a history of alcohol abuse although he has reportedly completely eliminated alcohol. He is a prior smoker with one pack a day for 40 years but is decreasing the frequency of his smoking. He is chronically on oxygen at 2 L nasal cannula. According to the son and the ex- who are the best historians patient was seen earlier today by the ex-. He seemed more confused than normal. They report that he has not seemed normal since his discharge from the hospital earlier this month. Approximately 30 minutes prior to arrival apparently the landlord went to check on the patient and found him on the floor awake but very confused. The son soon arrived after and noticed an episode of shaking followed by a period of unconsciousness lasting 1-2 minutes with incontinence of urine. Patient himself is confused but can be somewhat redirected verbally. REVIEW OF SYSTEMS: Constitutional: No fever, no chills. Confusion Eyes: No discharge. ENT: No sore throat. Cardiovascular: No chest pain, no palpitations. Respiratory: History of COPD chronically on oxygen Gastrointestinal: No abdominal pain, no vomiting. Genitourinary: No hematuria. Musculoskeletal: No back pain. Skin: No rashes. Neurological: No headache. Confusion Allergies: Coded Allergies: No Known Drug Allergies (Verified , 06/28/18) Home Meds Active Scripts Ipratropium [place] 17 Mcg/Act (ATROVENT HFA 17 MCG/ACT) 12.9 Gm Inh, 12.9 GM INH Q6H, #1 INH Prov:DIONICIO RODRÍGUEZ DO 06/23/18 Prednisone 10 Mg Tab (PREDNISONE 10 MG TAB) 10 Mg Tablet, 10 MG PO DIRECTED, #30 TAB Take 4 tab daily x 3 days, then 3 tab daily x 3 days, then 2 tab daily x 3 days, then 1 tab daily x 3 days. Prov:DIONICIO RODRÍGUEZ DO 06/23/18 Levalbuterol Tartrate (XOPENEX HFA) 15 Gm Hfa.aer.ad, 15 GM IH Q2H PRN for SHORTNESS OF BREATH, #1 INHALER Prov:DIONICIO RODRÍGUEZ DO 06/23/18 [Tamsulosin Hcl(*) 0.4 Mg Cap] 0.4 MG CAP No Conflict Check, 0.4 MG PO QDAY, #30 CAP Prov:DIONICIO RODRÍGUEZ DO 06/23/18 Fluticasone/Salmeterol (ADVAIR 500-50 DISKUS) 1 Each Disk.w.dev, 0 EACH INH BIDR, #1 INHALER Prov:DIONICIO RODRÍGUEZ DO 06/23/18 Reported Medications Fluticasone Prop 50 Mcg Ns (FLONASE 50 MCG NS) 16 Gm [place].susp, 1 SPRAY NS BID, BOT 06/20/18 Past Medical/Surgical History The patient has a past medical and surgical history of headaches, heavy smoking history, pneumonia, no diagnosis of COPD thus far, slow urinary stream, arthritis, numbness down both legs due to an injury, dentures, wears glasses, history of alcohol abuse however very minimal alcohol intake currently, ulnar nerve transposition, back surgery, tonsillectomy. Hx Smoking: Yes (2.5 pack per week) Smoking Status: Current: Every Day Smoker Hx Substance Use Disorder: No Hx Alcohol Use: Yes (HX ) Constitutional Vital Sign - Last 24 Hours 06/28/18 06/28/18 06/28/18 06/28/18 18:46 18:46 19:08 19:38 Temp 98.3 Pulse 123 124 120 Resp 16 26 Pulse Ox 94 95 96 O2 Delivery Nasal Cannula O2 Flow Rate 4.0 06/28/18 06/28/18 06/28/18 06/28/18 19:46 21:00 21:30 21:43 Pulse 105 102 B/P (MAP) 129/91 (104) Pulse Ox 97 97 O2 Flow Rate 4.0 06/28/18 06/28/18 06/28/18 06/28/18 21:48 22:00 22:00 22:00 Pulse 107 104 Resp 22 B/P (MAP) 144/95 (111) Pulse Ox 97 97 O2 Delivery Nasal Cannula O2 Flow Rate 4.0 06/28/18 06/28/18 06/28/18 06/28/18 22:00 22:05 22:18 22:30 Pulse 99 89 Resp 22 B/P (MAP) 152/98 (116) Pulse Ox 99 O2 Flow Rate 2.0 06/28/18 06/28/18 22:35 23:00 Pulse 87 B/P (MAP) 142/102 (115) Pulse Ox 97 Intake and Output 06/28/18 06/28/18 06/29/18 14:59 22:59 06:59 Intake Total 500 ml Output Total 100 ml Balance 400 ml Physical Exam General/Constitutional: Patient is awake, alert, has rapid breathing with accessory muscle use patient appears cachectic. Head: Normocephalic and atraumatic. Eyes: Sunken orbits Conjunctival clear, Pupils are equal and reactive to light. Extraocular muscles are intact and symmetrical. Sclera are clear and anicteric. Ears:External canals are clear. Tympanic membranes are clear with normal landmarks and light reflex. Nares: No rhinorrhea or bleeding. Turbinates are pink and moist. Oropharyngeal: Mucous membranes are moist. There is no pharyngeal erythema or exudate. There are no palatal petechiae. Uvula is midline and symmetrical. Neck: Supple, no adenopathy. Cardiovascular: Heart is regular but tachycardic Pulmonary: Lungs are with rhonchi throughout lung velasquez Abdomen: Soft, nontender, no guarding or peritoneal signs. Extremities: No gross deformities, No peripheral cyanosis. Able to move all 4 extremities. With 3+ pitting edema bilaterally Neuro: Alert and oriented X3, Skin: No rashes, skin is warm dry and well perfused. Medical Decision Making Data Points Result Diagram: 06/28/18185506/28/181855 Laboratory Hematology Test 06/28/18 18:56 06/28/18 18:57 06/28/18 19:50 06/28/18 21:30 Red Blood Count 4.44 M/uL (4.00-5.60) Mean Corpuscular Volume 99.3 fL (80.0-96.0) Mean Corpuscular Hemoglobin 33.1 pg (26.0-33.0) Mean Corpuscular Hemoglobin Concent 33.3 g/dL (32.0-36.0) Red Cell Distribution Width 13.9 % (11.5-14.5) Mean Platelet Volume 7.1 fL (7.2-11.1) Neutrophils (%) (Auto) 75.4 % (39.4-72.5) Lymphocytes (%) (Auto) 11.8 % (17.6-49.6) Monocytes (%) (Auto) 11.1 % (4.1-12.4) Eosinophils (%) (Auto) 1.1 % (0.4-6.7) Basophils (%) (Auto) 0.6 % (0.3-1.4) Nucleated RBC Relative Count (auto) 0.0 /100WBC Neutrophils # (Auto) 7.2 K/uL (2.0-7.4) Lymphocytes # (Auto) 1.1 K/uL (1.3-3.6) Monocytes # (Auto) 1.1 K/uL (0.3-1.0) Eosinophils # (Auto) 0.1 K/uL (0.0-0.5) Basophils # (Auto) 0.1 K/uL (0.0-0.1) Nucleated RBC Absolute Count (auto) 0.00 K/uL Sodium Level 132 mmol/L (137-145) Potassium Level 4.9 mmol/L (3.5-5.0) Chloride Level 93 mmol/L (98-107) Carbon Dioxide Level 34 mmol/L (22-30) Blood Urea Nitrogen 27 mg/dl (9-21) Creatinine 0.50 mg/dl (0.66-1.25) Glomerular Filtration Rate Calc > 60.0 Random Glucose 139 mg/dl (75-110) Lactate 1.4 mmol/L (0.7-2.1) Calcium Level 8.8 mg/dl (8.4-10.2) Magnesium Level 1.9 mg/dl (1.7-2.2) Total Bilirubin 0.4 mg/dl (0.2-1.3) Aspartate Amino Transf (AST/SGOT) 28 U/L (0-35) Alanine Aminotransferase (ALT/SGPT) 31 U/L (0-56) Alkaline Phosphatase 65 U/L (0-126) Total Creatine Kinase 112 U/L (55-170) Troponin I < 0.012 ng/ml Total Protein 5.8 g/dl (6.3-8.2) Albumin 3.4 g/dl (3.5-5.0) Salicylates Level < 10 mg/L Salicylate Last Dose Date unk Acetaminophen Level < 10 ug/ml Serum Alcohol < 10 mg/dl Whole Blood Glucose 160 mg/DL (75-110) Blood Gas Puncture Site Left radial Blood Gas Patient Temperature 98.3 DEGREES Arterial Blood pH 7.32 (7.35-7.45) Arterial Blood Partial Pressure CO2 67 mmHg (32-37) Arterial Blood Partial Pressure O2 < 35 mmHg (60-80) Arterial Blood HCO3 35 mmol/L (20-26) Arterial Blood Oxygen Saturation 53 % (92-100) Arterial Blood Base Excess 9.0 mmol/L Hi Test Acceptable Oxygen Liters/Minute 4l Urine Color Yellow Urine Clarity Clear Urine pH 5.0 pH (4.8-9.5) Urine Specific [place] 1.026 Urine Protein Negative mg/dL (NEGATIVE) Urine Glucose (UA) Negative mg/dL (NEGATIVE) Urine Ketones Negative mg/dL (NEGATIVE) Urine Blood Negative (NEGATIVE) Urine Nitrite Negative (NEGATIVE) Urine Bilirubin Negative (NEGATIVE) Urine Urobilinogen Negative mg/dL (0.2-1.9) Urine Leukocyte Esterase Negative (NEGATIVE) Urine RBC 2 /HPF (0-2/HPF) Urine WBC 1 /HPF (0-5/HPF) Urine Squamous Epithelial Cells Few /LPF (NONE-FEW) Urine Bacteria Negative /HPF (NONE-FEW) Urine Mucus Few /HPF (NONE-FEW) Urine Opiates Screen Negative Urine Barbiturates Screen Negative Ur Tricyclic Antidepressants Screen Negative Urine Phencyclidine Screen Negative Urine Amphetamines Screen Negative Urine Benzodiazepines Screen Negative Urine Cocaine Screen Negative Urine Cannabinoids Screen Negative Chemistry Test 06/28/18 18:56 06/28/18 18:57 06/28/18 19:50 06/28/18 21:30 White Blood Count 9.6 k/uL (4.5-11.0) Red Blood Count 4.44 M/uL (4.00-5.60) Hemoglobin 14.7 g/dL (14.0-18.0) Hematocrit 44.1 % (42.0-52.0) Mean Corpuscular Volume 99.3 fL (80.0-96.0) Mean Corpuscular Hemoglobin 33.1 pg (26.0-33.0) Mean Corpuscular Hemoglobin Concent 33.3 g/dL (32.0-36.0) Red Cell Distribution Width 13.9 % (11.5-14.5) Platelet Count 271 K/uL (150-450) Mean Platelet Volume 7.1 fL (7.2-11.1) Neutrophils (%) (Auto) 75.4 % (39.4-72.5) Lymphocytes (%) (Auto) 11.8 % (17.6-49.6) Monocytes (%) (Auto) 11.1 % (4.1-12.4) Eosinophils (%) (Auto) 1.1 % (0.4-6.7) Basophils (%) (Auto) 0.6 % (0.3-1.4) Nucleated RBC Relative Count (auto) 0.0 /100WBC Neutrophils # (Auto) 7.2 K/uL (2.0-7.4) Lymphocytes # (Auto) 1.1 K/uL (1.3-3.6) Monocytes # (Auto) 1.1 K/uL (0.3-1.0) Eosinophils # (Auto) 0.1 K/uL (0.0-0.5) Basophils # (Auto) 0.1 K/uL (0.0-0.1) Nucleated RBC Absolute Count (auto) 0.00 K/uL Glomerular Filtration Rate Calc > 60.0 Lactate 1.4 mmol/L (0.7-2.1) Calcium Level 8.8 mg/dl (8.4-10.2) Magnesium Level 1.9 mg/dl (1.7-2.2) Total Bilirubin 0.4 mg/dl (0.2-1.3) Aspartate Amino Transf (AST/SGOT) 28 U/L (0-35) Alanine Aminotransferase (ALT/SGPT) 31 U/L (0-56) Alkaline Phosphatase 65 U/L (0-126) Total Creatine Kinase 112 U/L (55-170) Troponin I < 0.012 ng/ml Total Protein 5.8 g/dl (6.3-8.2) Albumin 3.4 g/dl (3.5-5.0) Salicylates Level < 10 mg/L Salicylate Last Dose Date unk Acetaminophen Level < 10 ug/ml Serum Alcohol < 10 mg/dl Whole Blood Glucose 160 mg/DL (75-110) Blood Gas Puncture Site Left radial Blood Gas Patient Temperature 98.3 DEGREES Arterial Blood pH 7.32 (7.35-7.45) Arterial Blood Partial Pressure CO2 67 mmHg (32-37) Arterial Blood Partial Pressure O2 < 35 mmHg (60-80) Arterial Blood HCO3 35 mmol/L (20-26) Arterial Blood Oxygen Saturation 53 % (92-100) Arterial Blood Base Excess 9.0 mmol/L Hi Test Acceptable Oxygen Liters/Minute 4l Urine Color Yellow Urine Clarity Clear Urine pH 5.0 pH (4.8-9.5) Urine Specific [place] 1.026 Urine Protein Negative mg/dL (NEGATIVE) Urine Glucose (UA) Negative mg/dL (NEGATIVE) Urine Ketones Negative mg/dL (NEGATIVE) Urine Blood Negative (NEGATIVE) Urine Nitrite Negative (NEGATIVE) Urine Bilirubin Negative (NEGATIVE) Urine Urobilinogen Negative mg/dL (0.2-1.9) Urine Leukocyte Esterase Negative (NEGATIVE) Urine RBC 2 /HPF (0-2/HPF) Urine WBC 1 /HPF (0-5/HPF) Urine Squamous Epithelial Cells Few /LPF (NONE-FEW) Urine Bacteria Negative /HPF (NONE-FEW) Urine Mucus Few /HPF (NONE-FEW) Urine Opiates Screen Negative Urine Barbiturates Screen Negative Ur Tricyclic Antidepressants Screen Negative Urine Phencyclidine Screen Negative Urine Amphetamines Screen Negative Urine Benzodiazepines Screen Negative Urine Cocaine Screen Negative Urine Cannabinoids Screen Negative Toxicology Test 06/28/18 18:56 06/28/18 21:30 Salicylates Level < 10 mg/L Salicylate Last Dose Date unk Acetaminophen Level < 10 ug/ml Serum Alcohol < 10 mg/dl Urine Opiates Screen Negative Urine Barbiturates Screen Negative Ur Tricyclic Antidepressants Screen Negative Urine Phencyclidine Screen Negative Urine Amphetamines Screen Negative Urine Benzodiazepines Screen Negative Urine Cocaine Screen Negative Urine Cannabinoids Screen Negative Urinalysis Test 06/28/18 21:30 Urine Color Yellow Urine Clarity Clear Urine pH 5.0 pH (4.8-9.5) Urine Specific [place] 1.026 Urine Protein Negative mg/dL (NEGATIVE) Urine Glucose (UA) Negative mg/dL (NEGATIVE) Urine Ketones Negative mg/dL (NEGATIVE) Urine Blood Negative (NEGATIVE) Urine Nitrite Negative (NEGATIVE) Urine Bilirubin Negative (NEGATIVE) Urine Urobilinogen Negative mg/dL (0.2-1.9) Urine Leukocyte Esterase Negative (NEGATIVE) Urine RBC 2 /HPF (0-2/HPF) Urine WBC 1 /HPF (0-5/HPF) Urine Squamous Epithelial Cells Few /LPF (NONE-FEW) Urine Bacteria Negative /HPF (NONE-FEW) Urine Mucus Few /HPF (NONE-FEW) EKG/Imaging EKG Interpretation EKG shows sinus tachycardia with a ventricular rate of 124 bpm, low voltage. This was compared to an EKG from 06/20/2018 which showed very little change. Reading and at time was sinus tachycardia with a ventricular rate of 116 bpm low voltage. Monitor Interpretation: Sinus Tachycardia Imaging FACILITY: [facility] PATIENT NAME: Winston Morrison : 1950 MR: [id number] V: [id number] EXAM DATE: [id number] ORDERING PHYSICIAN: ROSALIO GALLARDO TECHNOLOGIST: Location: [facility] Patient: Winston Morrison : 1950 Visit/Account:[id number] Date of Sevice: 06/28/2018 EXAMINATION: CT head without IV contrast HISTORY: AMS. TECHNIQUE: Axial CT images of the head were obtained from the vertex to the skull base without IV contrast, with coronal and sagittal 2D reconstructed images. One of the following dose optimization techniques was utilized in the performance of this exam: Automated exposure control; adjustment of the mA and/or kV according to the patient's size; or use of an iterative reconstruction technique. Specific details can be referenced in the facility's radiology CT exam operational policy. COMPARISON: None. FINDINGS: Mild generalized parenchymal atrophy with patchy low attenuation in the deep white matter, compatible with chronic small vessel ischemic change. Intracranial vascular calcifications. No CT evidence of intracranial hemorrhage, mass lesion, or acute infarct. No midline shift or extra-axial fluid collections. Forde-white differentiation is maintained. The calvarium is intact. Mild mucosal thickening in the maxillary sinuses. The partially visualized paranasal sinuses and mastoid air cells are unopacified. IMPRESSION: 1. No CT evidence of acute intracranial pathology. 2. Mild parenchymal atrophy with chronic small vessel ischemic change. Report Dictated By: Yogesh Choe MD at 06/28/2018 8:24 PM Report E-Signed By: Yogesh Choe MD at 06/28/2018 8:33 PM WSN:[id number] FACILITY: [facility] PATIENT NAME: Winston Morrison : 1950 MR: [id number] V: [id number] EXAM DATE: [id number] ORDERING PHYSICIAN: ROSALIO GALLARDO TECHNOLOGIST: Location: [facility] Patient: Winston Morrison : 1950 Visit/Account:[id number] Date of Sevice: 06/28/2018 Technique: CHEST SINGLE AP HISTORY: ams Comparison studies: 06/20/2018 FINDINGS: No acute airspace consolidation. Scattered interstitial lung markings are again noted. These findings are most pronounced within the right midlung. There is pulmonary hyperexpansion. The cardiac silhouette is unchanged. IMPRESSION: 1. Chronic lung findings as above. Report Dictated By: Davide Orlando DO at 06/28/2018 8:22 PM Report E-Signed By: Davide Orlando DO at 06/28/2018 8:24 PM WSN:[id number] ED Course/Re-evaluation Clinical Indication for ER IV: IV Access ED Course 06/28/2018 7:06:11 pm patient with altered mental status. Patient with confusion but sounds apparently like a tonic-clonic seizure by history. Currently awake and alert but confused with some confabulation. Initial room air sat was 74% on room air. Plan at this time will be completing workup neurologically along with cardiac and infectious workup. Likely admission 06/28/2018 9:27:54 pm patient unable to ambulate under his own power but even with walker. We'll obtain urinalysis from catheterization Decision to Disposition Date: Jun 28, 2018 Decision to Disposition Time: 22:24 Depart Departure Latest Vital Signs Vital Signs Date Time Temp Pulse Resp B/P (MAP) Pulse Ox O2 Delivery O2 Flow Rate FiO2 06/28/18 23:00 142/102 (115) 06/28/18 22:35 87 97 06/28/18 22:05 22 06/28/18 22:00 2.0 06/28/18 22:00 Nasal Cannula 06/28/18 18:46 98.3 Impression: Primary Impression: COPD (chronic obstructive pulmonary disease) Additional Impressions: Hyponatremia Acute respiratory failure with hypoxemia Condition: Improved Disposition: Admitted from ER (to Dr Mauricio) Referrals: WILLARD GIRON DO (PCP) Problem Qualifiers Primary Impression: COPD (chronic obstructive pulmonary disease) COPD type: COPD with acute exacerbation Qualified Codes: J44.1 - Chronic obstructive pulmonary disease with (acute) exacerbation ROSALIO GALLARDO MD Jun 28, 2018 18:54
[2018-06-28] MEDS ORDERED: LORazepam 2 MG/ML VIAL IVP ONE (18:55)
[2018-06-28 19:10] LABS: PLATELET COUNT, AUTOMATED 271 K/uL (150-450)
--- NOTE | 2018-06-28 19:46 | EKG ---
FACILITY: [facility] [place] [place] PATIENT NAME: LOLA VINCENT : [id number] MR: [id number] V: [id number] EXAM DATE: ORDERING PHYSICIAN: ROSALIO GALLARDO TECHNOLOGIST: ARIEL Test Reason : NEURO Blood Pressure : / mmHG Vent. Rate : 124 BPM Atrial Rate : 124 BPM P-R Int : 142 ms QRS Dur : 086 ms QT Int : 312 ms P-R-T Axes : 087 184 069 degrees QTc Int : 448 ms Sinus tachycardia with premature supraventricular complexes R wave progression consistent with old ant/sep AL vs lead placement Low voltage QRS Borderline ECG When compared with ECG of 20-JUN-2018 22:26, premature supraventricular complexes are now present Questionable change in QRS axis Borderline criteria for Anterolateral infarct are no longer present T wave inversion no longer evident in Inferior leads Nonspecific T wave abnormality, improved in Anterolateral leads Confirmed by HANK KUHN ([id number]) on 06/28/2018 11:48:27 PM Referred By: Confirmed By:HANK KUHN
--- NOTE | 2018-06-28 20:27 | RADIOLOGY IMAGING REPORT ---
FACILITY: [facility] PATIENT NAME: Winston Morrison : 1950 MR: [id number] V: [id number] EXAM DATE: ORDERING PHYSICIAN: ROSALIO GALLARDO TECHNOLOGIST: Location: [facility] Patient: Winston Morrison : 1950 Visit/Account:[id number] Date of Sevice: 06/28/2018 Technique: CHEST SINGLE AP HISTORY: ams Comparison studies: 06/20/2018 FINDINGS: No acute airspace consolidation. Scattered interstitial lung markings are again noted. Thes e findings are most pronounced within the right midlung. There is pulmonary hyperexpansion. The cardi ac silhouette is unchanged. IMPRESSION: 1. Chronic lung findings as above. Report Dictated By: Davide Orlando DO at 06/28/2018 8:22 PM Report E-Signed By: Davide Orlando DO at 06/28/2018 8:24 PM WSN:[id number]
--- NOTE | 2018-06-28 20:35 | RADIOLOGY IMAGING REPORT ---
FACILITY: [facility] PATIENT NAME: Winston Morrison : 1950 MR: [id number] V: [id number] EXAM DATE: [id number] ORDERING PHYSICIAN: ROSALIO GALLARDO TECHNOLOGIST: Location: [facility] Patient: Winston Morrison : 1950 Visit/Account:[id number] Date of Sevice: 06/28/2018 EXAMINATION: CT head without IV contrast HISTORY: AMS. TECHNIQUE: Axial CT images of the head were obtained from the vertex to the skull base without IV c ontrast, with coronal and sagittal 2D reconstructed images. One of the following dose optimization techniques was utilized in the performance of this exam: Autom ated exposure control; adjustment of the mA and/or kV according to the patient's size; or use of an i terative reconstruction technique. Specific details can be referenced in the facility's radiology C T exam operational policy. COMPARISON: None. FINDINGS: Mild generalized parenchymal atrophy with patchy low attenuation in the deep white matter, compatible with chronic small vessel ischemic change. Intracranial vascular calcifications. No CT evidence of intracranial hemorrhage, mass lesion, or acute infarct. No midline shift or extra-a xial fluid collections. Forde-white differentiation is maintained. The calvarium is intact. Mild mucosal thickening in the maxillary sinuses. The partially visualized p aranasal sinuses and mastoid air cells are unopacified. IMPRESSION: 1. No CT evidence of acute intracranial pathology. 2. Mild parenchymal atrophy with chronic small vessel ischemic change. Report Dictated By: Yogesh Choe MD at 06/28/2018 8:24 PM Report E-Signed By: Yogesh Choe MD at 06/28/2018 8:33 PM WSN:[id number]
[2018-06-28] MEDS ORDERED: ALBUTEROL/IPRATROPIUM 3 ML NEB NEB ONE (21:30)
--- NOTE | 2018-06-28 22:41 | RADIOLOGY IMAGING REPORT ---
FACILITY: [facility] PATIENT NAME: Winston Morrison : 1950 MR: [id number] V: [id number] EXAM DATE: ORDERING PHYSICIAN: ROSALIO GALLARDO TECHNOLOGIST: Location: [facility] Patient: Winston Morrison : 1950 Visit/Account:[id number] Date of Sevice: 06/28/2018 PELVIS HISTORY: Fall several days ago. Bruising of the anterior pelvic area. COMPARISON: None. TECHNIQUE: 2 supine AP views of the pelvis. The lateral right greater trochanter was excluded on the first image, which is why it was repeated. FINDINGS: There is no fracture or dislocation. The sacroiliac joints are patent without widening. The re is no pubic diastases. There is a sclerotic lesion in the left iliac crest. 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 There is posterior lumbar fusion from L4 through S1. Hardware is intact. There are pelvic phleboliths . IMPRESSION: 1. No acute osseous abnormality of the pelvis. Report Dictated By: Juliana Elder at 06/28/2018 10:03 PM Report E-Signed By: Juliana Elder at 06/28/2018 10:36 PM WSN:[id number]
[2018-06-28] MEDS ORDERED: INFLUENZA VIRUS VAC 0.5ML SYR IM ONLY ONE (23:15)
[2018-06-28] MEDS ORDERED: LORazepam 2 MG/ML VIAL IVP PRN (23:15)
[2018-06-28] MEDS ORDERED: ALBUTEROL 2.5 MG/3 ML NEB NEB PRN (23:15)
[2018-06-28 23:40] VITALS: BP 135/87
[2018-06-28] MEDS: NS(*) 0.9% 1000 ML BAG 1,000 ML IV PRN (23:57)
[2018-06-29] MEDS: LEVALBUTEROL 1.25 MG/3 ML NEB NEB SCH ×5 (00:03→16:47)
--- NOTE | 2018-06-29 00:04 | History & Physical ---
History of Present Illness History of Present Illness 67yo male with COPD and pulmonary hypertension who was brought to the ER for confusion. He was discharged from the hospital on 06/22. The history is from his son and ex-. He was in for COPD exacerbation and LE edema from pulmonary hypertension. He was sent home on a steroid taper and nebs. The patient did continue to smoke upon return home. He never got back to his baseline of a couple of months ago. He continued to ramble and be tangential at times. He would have moments of seeming clear mentally. 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 During those times of anxiety, he would take off his O2. He wasn't sleeping well at home and would essentially sit up in a chair all night. He lives alone, so it is not clear how or if he was taking his medication. Also, it isn't clear how often he would take off his O2. He did have an appointment with Dr. Middleton yesterday. Dr. Middleton pulled the son aside and said that the patient needed placement and shouldn't be home. Today, the son spoke to the patient on the phone in the morning and though that the patient was clearest mentally that he witnessed for quite awhile. The ex- was with him in the afternoon until about 5pm. He then asked her to leave so he could sleep. Later, this evening the landlord looked in the patient's window and saw him on the ground. He was confused and off his O2. The patient's son arrived to apartment and noted that the patient was incontinent of urine. The patient kept repeating words like "window", "well", etc. When O2 was placed on the patient at home, the patient had a jerking motion of the body and then rolled his eyes back and was sleepy. The patient's son took him to the ER. During the drive the patient said he liked the song on the radio and sang along. When they got to the ER and the patient realized where he was he actively resisted walking in. The patient was very agitated but agreed to going to a room. In the ER, he received 0.5mg of Ativan immediately, 500cc of IVF and a DuoNeb. At the time of my exam, the patient was unable to give any history. History Problems: (1) BPH (benign prostatic hyperplasia) Status: Chronic (2) COPD (chronic obstructive pulmonary disease) Status: Chronic (3) Hyponatremia Status: Chronic Home Meds Active Scripts Ipratropium [place] 17 Mcg/Act (ATROVENT HFA 17 MCG/ACT) 12.9 Gm Inh, 12.9 GM INH Q6H, #1 INH Prov:DIONICIO RODRÍGUEZ DO 06/23/18 Prednisone 10 Mg Tab (PREDNISONE 10 MG TAB) 10 Mg Tablet, 10 MG PO DIRECTED, #30 TAB Take 4 tab daily x 3 days, then 3 tab daily x 3 days, then 2 tab daily x 3 days, then 1 tab daily x 3 days. Prov:DIONICIO RODRÍGUEZ DO 06/23/18 Levalbuterol Tartrate (XOPENEX HFA) 15 Gm Hfa.aer.ad, 15 GM IH Q2H PRN for SHORTNESS OF BREATH, #1 INHALER Prov:DIONICIO RODRÍGUEZ DO 06/23/18 [Tamsulosin Hcl(*) 0.4 Mg Cap] 0.4 MG CAP No Conflict Check, 0.4 MG PO QDAY, #30 CAP Prov:DIONICIO RODRÍGUEZ DO 06/23/18 Fluticasone/Salmeterol (ADVAIR 500-50 DISKUS) 1 Each Disk.w.dev, 0 EACH INH BIDR, #1 INHALER Prov:DIONICIO RODRÍGUEZ DO 06/23/18 Reported Medications Fluticasone Prop 50 Mcg Ns (FLONASE 50 MCG NS) 16 Gm [place].susp, 1 SPRAY NS BID, BOT 06/20/18 Allergies: Coded Allergies: No Known Drug Allergies (Verified , 06/28/18) Patient History: FH: colon cancer MOTHER FH: heart attack FATHER FH: heart disease FATHER FH: pancreatic cancer BROTHER OR SISTER, FH: renal failure FATHER Other Social/Family Hx Last drank alcohol in February. See HPI. Hx Smoking: Yes (2.5 pack per week) Smoking Status: Current: Every Day Smoker Hx Alcohol Use: Yes (HX ) Hx Substance Use Disorder: No Review of Systems Other Unable to obtain secondary to confusion Exam Vital Signs Vital Signs Date Time Temp Pulse Resp B/P (MAP) Pulse Ox O2 Delivery O2 Flow Rate FiO2 06/28/18 22:30 152/98 (116) 06/28/18 22:18 89 99 06/28/18 22:05 22 06/28/18 22:00 2.0 06/28/18 22:00 Nasal Cannula 06/28/18 18:46 98.3 General Appearance: No Acute Distress (Breathing comfortably. ) Neuro: Other (Opens eyes spontaneously and says he wants to go home. Other times he needs painful stimuli to be awoken. No focal motor deficits. FOWLER. Not following commands or answering questions.) Eyes: PERRLA ENT: Moist Mucous Membranes (No obvious tongue injury on limited exam) Cardiovascular: Regular Rate and Rhythm Respiratory: Clear to Auscultation (Decreased BS to bases) GI: Abd Soft and Non-Tender : Other (Ecchymosis over suprapubic region extending into the penis but not into the glans/scrotum/inguinal area) Extremities: Edema (2+ pitting with erythema to mid shins) Integumentary: No Jaundice, No Cyanosis Medical Decision Making Data Points Result Diagram: 06/28/18185506/28/181855 Item Value Date Time Mean Corpuscular Volume 99.3 fL H 06/28/181855 Platelet Count 271 K/uL 06/28/181855 Neutrophils (%) (Auto) 75.4 % H 06/28/181855 Lymphocytes (%) (Auto) 11.8 % L 06/28/181855 Troponin I < 0.012 ng/ml 06/28/181855 Total Creatine Kinase 112 U/L 06/28/181855 Lactate 1.4 mmol/L 06/28/181855 Magnesium Level 1.9 mg/dl 06/28/181855 Total Bilirubin 0.4 mg/dl 06/28/181855 Aspartate Amino Transf (AST/SGOT) 28 U/L 06/28/181855 Alanine Aminotransferase (ALT/SGPT) 31 U/L 06/28/181855 Alkaline Phosphatase 65 U/L 06/28/181855 Urine RBC 2 /HPF 06/28/182129 Urine Nitrite Negative 06/28/182129 Urine Bilirubin Negative 06/28/182129 Serum Alcohol < 10 mg/dl 06/28/181855 Acetaminophen Level < 10 ug/ml 06/28/181855 Salicylates Level < 10 mg/L 4/23/19 1856 Hemoglobin 12.7 g/dL L 06/22/18 0604 Mean Corpuscular Volume 98.2 fL H 06/22/18 0604 Platelet Count 179 K/uL 06/22/18 0604 Neutrophils (%) (Auto) 82.0 % H 06/22/18 0604 Lymphocytes (%) (Auto) 10.8 % L 06/22/18 0604 Sodium Level 125 mmol/L *L 06/23/18 0539 Blood Urea Nitrogen 10 mg/dl 06/23/18 0539 Creatinine 0.50 mg/dl L 06/23/18 0539 Carbon Dioxide Level 35 mmol/L H 06/23/18 0539 EKG / Imaging EKG Interpretation Sinus tachycardia to 124bpm. Poor R wave progression. Normalization of T abnormalities from previous. Imaging Pelvis Xray- 1. No acute osseous abnormality of the pelvis. CXR - 1. Chronic lung findings as above. Head CT - 1. No CT evidence of acute intracranial pathology. 2. Mild parenchymal atrophy with chronic small vessel ischemic change. Assessment and Plan Problems: (1) Altered mental state Status: Acute Assessment & Plan: He presented with acute confusion and agitation. He has been having tangential thinking and rambling with speech for a couple of weeks, but it appears to be worsening. He doesn't have signs of infection and head CT has no acute abnormalities. Certainly, hypoxia is contributing or is the main problem. He is taking off his O2 for unknown periods of time and was found down the evening of admission without O2. Also, he has been sleeping much at home. He will get an EEG tomorrow and seizure precautions have been implemented. He will be hydrated. Currently, he is not capable to make medical decisions. He likely is not safe to live at home. Will ask OT/PT/TCN to see the patient. If his mental status doesn't clear then he will likely need an MRI. Ativan prn at least for tonight to help him rest and keep him safe because he is wanting to go home. (2) COPD (chronic obstructive pulmonary disease) Status: Chronic Assessment & Plan: He continues to smoke. He is supposed to be on a steroid taper from his previous admission. He is breathing comfortably and not whee zing, so will stop the steroids for concern of it contributing to confusion. He will be continued on Advair and prn Xopenex. Xopenex will also be scheduled and will add Spiriva. O2. 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 Sodium is increased from discharge, but it is likely related to hemoconcentration. Will hydrate and follow. (4) Moderate to severe pulmonary hypertension Status: Acute Assessment & Plan: Secondary to hypoxia and severe COPD. He has 2+ pitting edema with reactive erythema to mid fields bilaterally despite being dehydrated. Will follow. (5) Ecchymosis on examination Status: Acute Assessment & Plan: Ecchymosis over suprapubic region extending into the penis but not into the glans/scrotum/inguinal area. Likely related to a fall. No fracture on pelvis Xray. Platelet count wnl. Will check INR. Follow symptoms. (6) Pressure sore Status: Acute Assessment & Plan: Over sacrum. Staff had covered it in the ER, but was reported dime sized with superficial skin breakdown. Will do off loading measures. It is complicated by his poor nutrition and cachexia. Copies to: DIONICIO MIDDLETON MD ; Venous Thromboembolism Antithrombotics Is Pt On Any Antithrombotics?: No Exam Sepsis Risk: No Definite Risk Problem Qualifiers (1) COPD (chronic obstructive pulmonary disease): COPD type: COPD with acute exacerbation Qualified Codes: J44.1 - Chronic obstructive pulmonary disease with (acute) exacerbation HANK KUHN MD Jun 29, 2018 00:04
[2018-06-29 03:30] VITALS: BP 124/64
[2018-06-29] MEDS ORDERED: LEVALBUTEROL 1.25 MG/3 ML NEB ONE (05:03)
[2018-06-29] MEDS: SALMETEROL/FLUTIC 500/50 1 INH INH SCH ×2 (05:07→16:47)
[2018-06-29] MEDS: TIOTROPIUM BROM INH 18 MCG/CAP INH SCH (05:07)
[2018-06-29] MEDS ORDERED: ALBUTEROL/IPRATROPIUM 3 ML NEB NEB SCH (06:00)
[2018-06-29 06:10] LABS: PLATELET COUNT, AUTOMATED 205 K/uL (150-450)
[2018-06-29 06:20] LABS: INR 1.09
[2018-06-29] MEDS ORDERED: LEVALBUTEROL 1.25 MG/3 ML NEB NEB PRN (08:30)
[2018-06-29 09:24] VITALS: BP 113/82
[2018-06-29] MEDS: TAMSULOSIN HCL 0.4 MG CAP PO SCH (09:32)
[2018-06-29] MEDS: ENOXAPARIN 40 MG/0.4ML SYR SC SCH (09:36)
[2018-06-29] MEDS: NS(*) 0.9% 1000 ML BAG 1,000 ML IV PRN ×2 (09:36→19:35)
--- NOTE | 2018-06-29 10:24 | Hospitalist Progress Note ---
Subjective Progress Notes Subjective This patient was admitted for COPD and altered mental status. He had no acute events overnight. Patient Complains of: Cardiovascular: No: Chest Pain Respiratory: No: Shortness of Breath Physical Exam Vital Signs Date Time Temp Pulse Resp B/P (MAP) Pulse Ox O2 Delivery O2 Flow Rate FiO2 06/29/18 09:24 98.6 103 24 113/82 (92) 93 Nasal Cannula 3.0 Intake and Output 06/29/18 07:00 Intake Total 620 ml Output Total 200 ml Balance 420 ml Intake Oral 120 ml IV Total 500 ml Output Urine Total 200 ml # Voids 1 Cardiovascular: Regular Rate and Rhythm Respiratory: Clear to Auscultation Result Diagram: 06/29/1852406/29/18524 Monitor Interpretation: Sinus Tachycardia Assessment and Plan Problems: (1) Altered mental state Status: Acute Assessment & Plan: He presented with acute confusion and agitation. He doesn't have signs of infection and head CT has no acute abnormalities. Certainly, hypoxia is contributing or is the main problem. He is taking off his O2 for unknown periods of time and was found down the evening of admission without O2. Also, he has been sleeping much at home. An EEG was negative. His mentation has now cleared. (2) COPD (chronic obstructive pulmonary disease) Status: Chronic Assessment & Plan: He continues to smoke. He is supposed to be on a steroid taper from his previous admission, but wasn't taking this. 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 (4) Moderate to severe pulmonary hypertension Status: Acute Assessment & Plan: Secondary to hypoxia and severe COPD. He has 2+ pitting edema with reactive erythema to mid fields bilaterally despite being dehydrated. Will follow. (5) Ecchymosis on examination Status: Acute Assessment & Plan: Ecchymosis over suprapubic region extending into the penis but not into the glans/scrotum/inguinal area. Likely related to a fall. No fracture on pelvis Xray. Platelet count wnl. Will check INR. Follow symptoms. (6) Pressure sore Status: Acute Assessment & Plan: Over sacrum. Staff had covered it in the ER, but was reported dime sized with superficial skin breakdown. Will do off loading measures. It is complicated by his poor nutrition and cachexia. Exam Sepsis Risk: Sepsis Risk Problem Qualifiers (1) COPD (chronic obstructive pulmonary disease): COPD type: COPD with acute exacerbation Qualified Codes: J44.1 - Chronic obstructive pulmonary disease with (acute) exacerbation DIONICIO RODRÍGUEZ DO Jun 29, 2018 10:24
[2018-06-29 14:03] VITALS: BP 130/72
--- NOTE | 2018-06-29 15:27 | Medical Nutrition Therapy ---
Nutrition Anthropometrics Height (Inches): 73 (No ht recorded for this visit and past visits were all different. Pt and Pt son stated that pt is 73" (6'1")) Weight (Pounds): 140 Weight (Calculated Kilograms): 63.673 BMI: 18.5 Anil Nutrition Score: Adequate Anil Nutrition Risk Score: 16 Dietary Referral Nutrition Risk Factors: Significantly Underwt. Nutrition Risk Comment: Pt. was given a physical assessment to check nutritional status and is severely malnourished. Pt IBW is 174lb Physical Findings Physical Appearance: Underweight BMI<19 Skin Appearance Skin Appearance: Edema Edema Location Modifier: Both Edema Location: Lower Extremity Type of Edema: Degree of Edema: 3+ Gastrointestinal Symptoms GI Symtoms: Tube Present: Bowel Sounds: Recent Bowel Pattern: Stool Characteristics: Nutrition/Food History Poor Skipped Meals: Yes Breakfast: Refused Lunch: Had brought in Nutritional Diagnosis Nutritional Risk Acuity 1: Malnutrition (Found during physical examination on 06/29), Cachectic Nutritional Risk Acuity 2: %IBW 75-80% Nutritional Risk Acuity 3: Fair Appetite, ST I/II Pressure Ulcer, COPD Unstable Past Medical History: ETHO Abuse, smokes 2.5 packs a week, dementia, emphysema, pneumonia, hyponatremia Nutritional Acuity: 1-High Nutrition Diagnosis: Under-weight Nutrition Etiology: Inability Manage SelfCare Nutrition Problem/Etiology/Sym: Under-weight related to inability to manage selfcare as evidence by cachexia, malnutrition, BMI 18.5, pressure sores from poor nutrition and cachexia, inadequate food intake, and dementia. Energy Requirement: 1892 (MSJ: 73", 63.6kg, 1.3AF) Protein Requirement: 83 (63.63kg x 1.3g/kg) Fluid Requirement: 1892 (1ml/branden x 1892 branden) Diet Type: Diet as Tolerated ARABELLA/REG Nutrition Intervention: Cont diet as ordered, Encourage intake, Between meal supplement Diet Comment To [facility]: OFFER BOOST MILKSHAKE SUPPLEMENT FOR EVERY MEAL Nutrition Monitoring & Eval Nutrition Goals: Eat 50-100% Meal, Drink > 2 liters/day RD Patient Assessment Time: [address] Assessment Type: RD Assessment Patient Nutrition Acuity: 1-High Follow Up Date: Jul 02, 2018 Nutritional Comment: 06/29 Pt was readmited after falling and being unresponsive. Pt has a hx of ETHO Abuse, smokes 2.5 packs a week, dementia, emphysema, pneumonia, and hyponatremia. Pt diagnosed with altered mental state, exacerbation COPD, hyponatremia, pulmonary HTN, ecchymosis, and pressure sores due to poor nutrition and cachexia. Pt labs show a low alb of 2.6, hgb 13, Hct 39.1, and Na 130. Pt was not given a ht for this visit and past visits, pt and son stated pt gladis is 73" (6'1"). Pt was given a nutrition focused physical exam and found pt is malnourished. Pt had subcutaneous fat loss in orbital region (slightly hollow look) and in upper arm (very little space between folds and fingers touched). Pt has severe muscle loss in christianity (hollow depressions), portrusion is prominent in clavicle and acromion process, slight depression in dorsal hand region, and 3+ edema in BLE. Pt will benefit with a boost milkshake supplement with or between each meal. JAMIA WALDEN Jun 29, 2018 15:21
[2018-06-29 18:38] VITALS: BP 135/91
[2018-06-30 02:25] VITALS: BP 118/72
[2018-06-30] MEDS: NS(*) 0.9% 1000 ML BAG 1,000 ML IV PRN ×2 (04:35→14:15)
[2018-06-30] MEDS: SALMETEROL/FLUTIC 500/50 1 INH INH SCH ×2 (05:45→16:58)
[2018-06-30] MEDS: TIOTROPIUM BROM INH 18 MCG/CAP INH SCH (05:45)
[2018-06-30] MEDS: LEVALBUTEROL 1.25 MG/3 ML NEB NEB SCH ×3 (05:45→16:58)
[2018-06-30] MEDS: ENOXAPARIN 40 MG/0.4ML SYR SC SCH (08:20)
[2018-06-30] MEDS: TAMSULOSIN HCL 0.4 MG CAP PO SCH (08:20)
[2018-06-30 08:24] VITALS: BP 125/72
[2018-06-30 11:52] VITALS: BP 107/71
--- NOTE | 2018-06-30 11:59 | Hospitalist Progress Note ---
Subjective Progress Notes Subjective 67M admitted for hypoxia and AMS. BERRY overnight, discussed possible placement and he was open to idea. Physical Exam Vital Signs Date Time Temp Pulse Resp B/P (MAP) Pulse Ox O2 Delivery O2 Flow Rate FiO2 06/30/18 11:52 97.6 97 22 107/71 (83) 93 Nasal Cannula 4.0 Intake and Output 06/30/18 07:00 Intake Total 3712 ml Output Total 1100 ml Balance 2612 ml Intake Oral 560 ml IV Total 3152 ml Output Urine Total 1100 ml # Voids 3 # Bowel Movements 1 General Appearance: Alert, Awake, No Acute Distress Neuro: No Gross deficits Cardiovascular: Normal Rhythm & Peripheral Pulses Respiratory: No Respiratory Distress GI: Soft and Non-Tender Extremities: Soft and Non Tender, Warm, Pulses, Perfused, Edema Integumentary: Skin Intact without Lesion / Mass Result Diagram: 06/29/1852406/29/18524 Monitor Interpretation: Sinus Tachycardia Assessment and Plan Problems: (1) Altered mental state Status: Acute Assessment & Plan: He presented with acute confusion and agitation. He doesn't have signs of infection and head CT has no acute abnormalities. Certainly, hypoxia is contributing or is the main problem. He is taking off his O2 for unknown periods of time and was found down the evening of admission without O2. Also, he has been sleeping much at home. An EEG was negative. His mentation has now cleared. (2) COPD (chronic obstructive pulmonary disease) Status: Chronic Assessment & Plan: He continues to smoke. He is supposed to be on a steroid taper from his previous admission, but wasn't taking this. 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 (4) Moderate to severe pulmonary hypertension Status: Acute Assessment & Plan: Secondary to hypoxia and severe COPD. He has 2+ pitting edema with reactive erythema to mid fields bilaterally despite being dehydrated. Will follow. (5) Ecchymosis on examination Status: Acute Assessment & Plan: Ecchymosis over suprapubic region extending into the penis but not into the glans/scrotum/inguinal area. Likely related to a fall. No fracture on pelvis Xray. Platelet count wnl. Will check INR. Follow symptoms. (6) Pressure sore Status: Acute Assessment & Plan: Over sacrum. Staff had covered it in the ER, but was re ported dime sized with superficial skin breakdown. Will do off loading measures. It is complicated by his poor nutrition and cachexia. Exam Sepsis Risk: No Definite Risk Problem Qualifiers (1) COPD (chronic obstructive pulmonary disease): COPD type: COPD with acute exacerbation Qualified Codes: J44.1 - Chronic obstructive pulmonary disease with (acute) exacerbation STAS TOMLINSON DO Jun 30, 2018 11:59
--- NOTE | 2018-06-30 16:12 | Medical Nutrition Therapy ---
Nutrition Anthropometrics Height (Inches): 73 (No ht recorded for this visit and past visits were all different. Pt and Pt son stated that pt is 73" (6'1")) Weight (Pounds): 140 Weight (Calculated Kilograms): 63.673 BMI: 18.5 Anil Nutrition Score: Probably Inadequate Anil Nutrition Risk Score: 15 Dietary Referral Nutrition Risk Factors: Significantly Underwt. Nutrition Risk Comment: Physical Findings Physical Appearance: Underweight BMI<19 Skin Appearance Skin Appearance: Edema Edema Location Modifier: Both Edema Location: Lower Extremity Type of Edema: Degree of Edema: 3+ Gastrointestinal Symptoms GI Symtoms: Tube Present: Bowel Sounds: Recent Bowel Pattern: Stool Characteristics: Nutrition/Food History Increased Appetite Fair Skipped Meals: No Nutritional Diagnosis Nutritional Risk Acuity 1: Malnutrition (Found during physical examination on 06/29), Cachectic Nutritional Risk Acuity 2: %IBW 75-80% Nutritional Risk Acuity 3: Fair Appetite, ST I/II Pressure Ulcer, COPD Unstable Past Medical History: ETHO Abuse, smokes 2.5 packs a week, dementia, emphysema, pneumonia, hyponatremia Nutritional Acuity: 1-High Nutrition Diagnosis: Under-weight Nutrition Etiology: Inability Manage SelfCare Nutrition Problem/Etiology/Sym: Under-weight related to inability to manage selfcare as evidence by cachexia, malnutrition, BMI 18.5, pressure sores from poor nutrition and cachexia, inadequate food intake, and dementia. Energy Requirement: 1892 (MSJ: 73", 63.6kg, 1.3AF) Protein Requirement: 83 (63.63kg x 1.3g/kg) Fluid Requirement: 1892 (1ml/branden x 1892 branden) Diet Type: Diet as Tolerated [place]/REG Nutrition Intervention: Cont diet as ordered, Encourage intake, Between meal supplement Diet Comment To [facility]: OFFER BOOST MILKSHAKE SUPPLEMENT FOR EVERY MEAL Nutritional Education Nutrition Education Topic: Other Learning Barriers: Cognitive Learning Readiness: Interested Teaching Methods: Discussion, Handout Response to Teaching: Verbalize understanding Teaching Recipient: Patient Nutrition Counseling: Pt has an altered mental state, so there was some confusion. Pt was left with handouts for son to look over. Nutrition Monitoring & Eval RD Patient Assessment Time: [address] Assessment Type: RD Re-Assessment Patient Nutrition Acuity: 1-High Follow Up Date: Jul 03, 2018 Nutritional Comment: 06/29 Pt was readmited after falling and being unresponsive. Pt has a hx of ETHO Abuse, smokes 2.5 packs a week, dementia, emphysema, pneumonia, and hyponatremia. Pt diagnosed with altered mental state, exacerbation COPD, hyponatremia, pulmonary HTN, ecchymosis, and pressure sores due to poor nutrition and cachexia. Pt labs show a low alb of 2.6, hgb 13, Hct 39.1, and Na 130. Pt was not given a ht for this visit and past visits, pt and son stated pt gladis is 73" (6'1"). Pt was given a nutrition focused physical exam and found pt is malnourished. Pt had subcutaneous fat loss in orbital region (slightly hollow look) and in upper arm (very little space between folds and fingers touched). Pt has severe muscle loss in muslim (hollow depressions), portrusion is prominent in clavicle and acromion process, slight depression in dorsal hand region, and 3+ edema in BLE. Pt will benefit with a boost milkshake supplement with or between each meal. CD 06/30 Met with pt to talk about increasing protein and caloric intake. Pt has altered mental status and was unable to completely comprehend suggestions. Pt was given a handout for son to look over when he returned. Will continue to monitor and encourage intake. JAMIA WALDEN Jun 30, 2018 14:45
[2018-06-30 19:20] VITALS: BP 129/93
[2018-07-01] MEDS: NS(*) 0.9% 1000 ML BAG 1,000 ML IV PRN (00:04)
[2018-07-01 00:05] VITALS: BP 125/86
[2018-07-01] MEDS: LEVALBUTEROL 1.25 MG/3 ML NEB NEB SCH ×3 (05:36→17:51)
[2018-07-01] MEDS: SALMETEROL/FLUTIC 500/50 1 INH INH SCH ×2 (05:36→17:51)
[2018-07-01] MEDS: TIOTROPIUM BROM INH 18 MCG/CAP INH SCH (05:36)
[2018-07-01 07:27] VITALS: BP 130/88
[2018-07-01] MEDS: LEVOTHYROXINE SOD 0.025 MG TAB PO SCH (09:33)
[2018-07-01] MEDS: TAMSULOSIN HCL 0.4 MG CAP PO SCH (09:33)
[2018-07-01] MEDS: ENOXAPARIN 40 MG/0.4ML SYR SC SCH (09:34)
--- NOTE | 2018-07-01 11:30 | Hospitalist Progress Note ---
Subjective Progress Notes Subjective The patient continues to be confused at times. The nursing staff notes this is a marked change from his last admission. CT of the head on admission showed no acute changes. Physical Exam Vital Signs Date Time Temp Pulse Resp B/P (MAP) Pulse Ox O2 Delivery O2 Flow Rate FiO2 07/01/18 11:18 75 18 07/01/18 11:12 92 Nasal Cannula 1.0 07/01/18 07:27 97.8 130/88 (102) Intake and Output 07/01/18 06:59 Intake Total 3442 ml Output Total 925 ml Balance 2517 ml Intake Oral 1490 ml IV Total 1952 ml Output Urine Total 925 ml # Voids 2 # Bowel Movements 1 General Appearance: Alert, Awake Eyes: PERRLA Cardiovascular: Regular Rate and Rhythm Respiratory: Clear to Auscultation Result Diagram: 06/29/1852406/29/18524 Monitor Interpretation: Sinus Tachycardia Assessment and Plan Problems: (1) Altered mental state Status: Acute Assessment & Plan: He presented with acute confusion and agitation. He doesn't have signs of infection and head CT has no acute abnormalities. Certainly, hypoxia is contributing or is the main problem. He is taking off his O2 for unknown periods of time and was found down the evening of admission without O2. Also, he has been sleeping much at home. An EEG was negative. His mentation has improved, but he is still not back to his baseline according to nursing who cared for him during his last admission 06/20. (2) COPD (chronic obstructive pulmonary disease) Status: Chronic Assessment & Plan: He continues to smoke. He is supposed to be on a steroid taper from his previous admission, but wasn't taking this. 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 Improved. Will saline lock and recheck in am. (4) Moderate to severe pulmonary hypertension Status: Acute Assessment & Plan: Secondary to hypoxia and severe COPD. He has 2+ pitting edema with reactive erythema to mid fields bilaterally despite being dehydrated. Will follow. (5) Ecchymosis on examination Status: Acute Assessment & Plan: Ecchymosis over suprapubic region extending into the penis but not into the glans/scrotum/inguinal area. Likely related to a fall. No fracture on pelvis Xray. Platelet count wnl. Will check INR. Follow symptoms. (6) Pressure sore Status: Acute Assessment & Plan: Over sacrum. Staff had covered it in the ER, but was reported dime sized with superficial skin breakdown. Will do off loading measures. It is complicated by his poor nutrition and cachexia. (7) Malnutrition Status: Chronic Assessment & Plan: The patient does not eat well. Will need to try and encourage him to eat calorie dense foods. Time Spent on Plan of Care: < 30 min Exam Sepsis Risk: No Definite Risk Problem Qualifiers (1) COPD (chronic obstructive pulmonary disease): COPD type: COPD with acute exacerbation Qualified Codes: J44.1 - Chronic obstructive pulmonary disease with (acute) exacerbation KONRAD MUSE MD Jul 01, 2018 11:30
--- NOTE | 2018-07-01 12:53 | Medical Nutrition Therapy ---
Nutrition Anthropometrics Height (Inches): 73 (No ht recorded for this visit and past visits were all different. Pt and Pt son stated that pt is 73" (6'1")) Weight (Pounds): 140 Weight (Calculated Kilograms): 63.673 BMI: 18.5 Anil Nutrition Score: Probably Inadequate Anil Nutrition Risk Score: 18 Dietary Referral Nutrition Risk Factors: Significantly Underwt. Nutrition Risk Comment: Physical Findings Physical Appearance: Underweight BMI<19 Skin Appearance Skin Appearance: Edema Edema Location Modifier: Both Edema Location: Lower Extremity Type of Edema: Degree of Edema: 1+ Gastrointestinal Symptoms GI Symtoms: Tube Present: Bowel Sounds: Recent Bowel Pattern: Stool Characteristics: Nutritional Diagnosis Nutritional Risk Acuity 1: Malnutrition (Found during physical examination on 06/29), Cachectic Nutritional Risk Acuity 2: %IBW 75-80% Nutritional Risk Acuity 3: Fair Appetite, ST I/II Pressure Ulcer, COPD Unstable Past Medical History: ETHO Abuse, smokes 2.5 packs a week, dementia, emphysema, pneumonia, hyponatremia Nutritional Acuity: 1-High Nutrition Diagnosis: Under-weight Nutrition Etiology: Inability Manage SelfCare Nutrition Problem/Etiology/Sym: Under-weight related to inability to manage selfcare as evidence by cachexia, malnutrition, BMI 18.5, pressure sores from poor nutrition and cachexia, inadequate food intake, and dementia. Energy Requirement: 1892 (MSJ: 73", 63.6kg, 1.3AF) Protein Requirement: 83 (63.63kg x 1.3g/kg) Fluid Requirement: 1892 (1ml/branden x 1892 branden) Diet Type: Diet as Tolerated ARABELLA/REG Nutrition Intervention: Cont diet as ordered, Encourage intake, Between meal supplement Diet Comment To [facility]: OFFER BOOST MILKSHAKE SUPPLEMENT FOR EVERY MEAL Nutrition Monitoring & Eval Nutrition Goals: Eat 75-100% Meal Nutrition Follow-Up: Fair Intake RD Patient Assessment Time: [address] Assessment Type: RD Re-Assessment Patient Nutrition Acuity: 1-High Follow Up Date: Jul 04, 2018 Nutritional Comment: 06/29 Pt was readmited after falling and being unresponsive. Pt has a hx of ETHO Abuse, smokes 2.5 packs a week, dementia, emphysema, pneumonia, and hyponatremia. Pt diagnosed with altered mental state, exacerbation COPD, hyponatremia, pulmonary HTN, ecchymosis, and pressure sores due to poor nutrition and cachexia. Pt labs show a low alb of 2.6, hgb 13, Hct 39.1, and Na 130. Pt was not given a ht for this visit and past visits, pt and son stated pt glaids is 73" (6'1"). Pt was given a nutrition focused physical exam and found pt is malnourished. Pt had subcutaneous fat loss in orbital region (slightly hollow look) and in upper arm (very little space between folds and fingers touched). Pt has severe muscle loss in cheondoism (hollow depressions), portrusion is prominent in clavicle and acromion process, slight depression in dorsal hand region, and 3+ edema in BLE. Pt will benefit with a boost milkshake supplement with or between each meal. CD 06/30 Met with pt to talk about increasing protein and caloric intake. Pt has altered mental status and was unable to completely comprehend suggestions. Pt was given a handout for son to look over when he returned. Will continue to monitor and encourage intake. CD 07/01 Intake average 53% with occasional nutr supplment consumed. Alb declnied to 2.6. Pt cont confusion which may be affecting intake. Will cont o monitor and encourage intake. KELLY LEYVA Jul 01, 2018 12:53
[2018-07-01 17:10] VITALS: BP 140/97
[2018-07-01 23:09] VITALS: BP 115/86
[2018-07-02 04:42] VITALS: BP 139/96
[2018-07-02] MEDS: LEVOTHYROXINE SOD 0.025 MG TAB PO SCH (05:21)
[2018-07-02] MEDS: SALMETEROL/FLUTIC 500/50 1 INH INH SCH ×2 (05:29→18:04)
[2018-07-02] MEDS: TIOTROPIUM BROM INH 18 MCG/CAP INH SCH (05:29)
[2018-07-02] MEDS: LEVALBUTEROL 1.25 MG/3 ML NEB NEB SCH ×3 (05:30→18:00)
[2018-07-02 06:07] LABS: PLATELET COUNT, AUTOMATED 213 K/uL (150-450)
[2018-07-02 06:57] VITALS: BP 146/99
[2018-07-02] MEDS: TAMSULOSIN HCL 0.4 MG CAP PO SCH (08:36)
[2018-07-02] MEDS: ENOXAPARIN 40 MG/0.4ML SYR SC SCH (08:37)
--- NOTE | 2018-07-02 10:24 | Hospitalist Progress Note ---
Subjective Progress Notes Subjective This patient was admitted for hypoxia and altered mental status. He had no acute events overnight. Patient Complains of: Cardiovascular: No: Chest Pain Respiratory: No: Shortness of Breath Physical Exam Vital Signs Date Time Temp Pulse Resp B/P (MAP) Pulse Ox O2 Delivery O2 Flow Rate FiO2 07/02/18 08:36 85 07/02/18 07:52 Nasal Cannula 3.0 07/02/18 06:57 98.2 82 16 146/99 (115) Intake and Output 07/02/18 07:00 Intake Total 1020 ml Output Total 875 ml Balance 145 ml Intake Oral 1020 ml Output Urine Total 875 ml # Voids 6 # Bowel Movements 1 Cardiovascular: Regular Rate and Rhythm Respiratory: Clear to Auscultation Result Diagram: 07/02/1853007/02/18530 Monitor Interpretation: Sinus Tachycardia Assessment and Plan Problems: (1) Altered mental state Status: Acute Assessment & Plan: He presented with acute confusion and agitation. He was found at home to be without his oxygen for an unknown period of time. His mentation is much different than it had been on his previous admission. An EEG was reported as normal and a CT scan only showed atrophy and chronic ischemic changes. (2) COPD (chronic obstructive pulmonary disease) Status: Chronic Assessment & Plan: He is on chronic treatment with Xopenex, Spiriva, and Advair. (3) Hyponatremia Status: Chronic Assessment & Plan: His sodium has been running low. (4) Moderate to severe pulmonary hypertension Status: Acute Assessment & Plan: Secondary to hypoxia and severe COPD. (5) Ecchymosis on examination Status: Acute Assessment & Plan: Ecchymosis over suprapubic region extending into the penis but not into the glans/scrotum/inguinal area. Likely related to a fall. No fracture on pelvis Xray. (6) Pressure sore Status: Acute Assessment & Plan: Over sacrum. Staff had covered it in the ER, but was reported dime sized with superficial skin breakdown. Will do off loading measures. It is complicated by his poor nutrition and cachexia. (7) Malnutrition Status: Chronic Assessment & Plan: The patient does not eat well. Will need to try and encourage him to eat calorie dense foods. Exam Sepsis Risk: No Definite Risk Problem Qualifiers (1) COPD (chronic obstructive pulmonary disease): COPD type: COPD with acute exacerbation Qualified Codes: J44.1 - Chronic obstructive pulmonary disease with (acute) exacerbation DIONICIO RODRÍGUEZ DO Jul 02, 2018 10:24
[2018-07-02 11:24] VITALS: BP 133/82
[2018-07-02 14:13] VITALS: BP 134/82
[2018-07-02 19:42] VITALS: BP 129/84
[2018-07-03 02:01] VITALS: BP 139/92
[2018-07-03] MEDS: LEVOTHYROXINE SOD 0.025 MG TAB PO SCH (05:48)
[2018-07-03] MEDS: SALMETEROL/FLUTIC 500/50 1 INH INH SCH ×2 (05:58→17:50)
[2018-07-03] MEDS: TIOTROPIUM BROM INH 18 MCG/CAP INH SCH (05:58)
[2018-07-03] MEDS: LEVALBUTEROL 1.25 MG/3 ML NEB NEB SCH ×3 (05:59→17:51)
[2018-07-03 06:43] VITALS: BP 147/96
[2018-07-03 07:38] VITALS: BP 145/88
[2018-07-03] MEDS: TAMSULOSIN HCL 0.4 MG CAP PO SCH (08:49)
[2018-07-03] MEDS: ENOXAPARIN 40 MG/0.4ML SYR SC SCH (08:51)
--- NOTE | 2018-07-03 11:11 | Hospitalist Progress Note ---
Subjective Progress Notes Subjective He is awake and alert. He does seem to understand some aspects of his illness and being hospitalized, but does not seem to understand others. He speaks in rambling/tangential sentences frequently. Physical Exam Vital Signs Date Time Temp Pulse Resp B/P (MAP) Pulse Ox O2 Delivery O2 Flow Rate FiO2 07/03/18 10:08 75 07/03/18 07:47 Nasal Cannula 2.0 07/03/18 07:38 97.9 85 16 145/88 (107) Intake and Output 07/03/18 07:00 Intake Total 920 ml Output Total 1450 ml Balance -530 ml Intake Oral 920 ml Output Urine Total 1450 ml # Voids 6 # Bowel Movements 2 General Appearance: Alert, Awake Neuro: No Gross deficits Cardiovascular: Regular Rate and Rhythm (distant tones) Respiratory: Other (greatly dimininshed breath sounds throughout/prolonged expiratory phase) Extremities: Warm, Perfused, Edema Result Diagram: 07/02/18 0531 07/03/18 05 Assessment and Plan Problems: (1) Altered mental state Status: Acute Assessment & Plan: He presented with acute confusion and agitation. He was found at home to be without his oxygen for an unknown period of time. His mentation is somewhat different than it had been on his previous admission. EEG was reported as normal and CT scan only showed atrophy and chronic ischemic changes. 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 It appears he would now have significant difficulty living even semi-independently. (2) COPD (chronic obstructive pulmonary disease) Status: Chronic Assessment & Plan: He is on chronic treatment with Xopenex, Spiriva, and Advair. (3) Hyponatremia Status: Chronic Assessment & Plan: Chronic - 128 today. His sodium has been running in the 125- 132 range. (4) Moderate to severe pulmonary hypertension Status: Acute Assessment & Plan: Secondary to hypoxia and severe COPD. (5) Ecchymosis on examination Status: Acute Assessment & Plan: Ecchymosis over suprapubic region extending into the penis but not into the glans/scrotum/inguinal area. Likely related to a fall. No fracture on pelvis x-ray. (6) Pressure sore Status: Acute Assessment & Plan: Over sacrum. Staff had covered it in the ER, but was reported dime sized with superficial skin breakdown. Will do off loading measures. It is complicated by his poor nutrition and pulmonary cachexia. (7) Malnutrition Status: Chronic Assessment & Plan: The patient does not eat well. Will need to try and encourage him to eat calorie dense foods. Exam Sepsis Risk: No Definite Risk Problem Qualifiers (1) COPD (chronic obstructive pulmonary disease): COPD type: COPD with acute exacerbation Qualified Codes: J44.1 - Chronic obstructive pulmonary disease with (acute) exacerbation SATHYA MUSE MD Jul 03, 2018 11:11
[2018-07-03 14:14] VITALS: BP 153/93
[2018-07-03 18:56] VITALS: BP 133/86
[2018-07-04 00:32] VITALS: BP 117/88
[2018-07-04] MEDS: TIOTROPIUM BROM INH 18 MCG/CAP INH SCH (04:34)
[2018-07-04] MEDS: LEVALBUTEROL 1.25 MG/3 ML NEB NEB SCH ×3 (04:34→16:52)
[2018-07-04] MEDS: SALMETEROL/FLUTIC 500/50 1 INH INH SCH ×2 (04:34→16:52)
[2018-07-04] MEDS: LEVOTHYROXINE SOD 0.025 MG TAB PO SCH (05:19)
[2018-07-04 06:00] LABS: PLATELET COUNT, AUTOMATED 259 K/uL (150-450)
[2018-07-04 06:50] VITALS: BP 121/95
[2018-07-04] MEDS: ENOXAPARIN 40 MG/0.4ML SYR SC SCH (08:59)
[2018-07-04] MEDS: TAMSULOSIN HCL 0.4 MG CAP PO SCH (08:59)
--- NOTE | 2018-07-04 10:46 | Hospitalist Progress Note ---
Subjective Progress Notes Subjective He reports that his breathing is better. He assures me that I don't need to see him anymore. Staff doesn't report any problems overnight. Physical Exam Vital Signs Date Time Temp Pulse Resp B/P (MAP) Pulse Ox O2 Delivery O2 Flow Rate FiO2 07/04/18 07:43 94 Nasal Cannula 2.0 07/04/18 06:50 98.2 86 16 121/95 (104) Intake and Output 07/04/18 07:00 Intake Total 120 ml Output Total 1150 ml Balance -1030 ml Intake Oral 120 ml Output Urine Total 1150 ml # Voids 6 # Bowel Movements 1 General Appearance: Alert, Awake Cardiovascular: Regular Rate and Rhythm (distant heart tones) Respiratory: Clear to Auscultation (Decreased BS in bases bilaterally) Extremities: Edema (1-2+ pitting in ankles to 1/3 way up lower leg. Mild erythema in ankles) Result Diagram: 07/04/18 0543 07/04/1843 Assessment and Plan Problems: (1) Altered mental state Status: Acute Assessment & Plan: He presented with acute confusion and agitation. He was foun d at home to be without his oxygen for an unknown period of time. His mentation is somewhat worse than it had been on his previous admission. EEG was reported as normal and CT scan only showed atrophy and chronic ischemic changes. 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 It appears he would now have significant difficulty living even semi-independently. Looking at SNF facilities (2) COPD (chronic obstructive pulmonary disease) Status: Chronic Assessment & Plan: He is on chronic treatment with Xopenex, Spiriva, and Advair. (3) Hyponatremia Status: Chronic Assessment & Plan: Chronic - 126 today. His sodium has been running in the 125- 132 range. (4) Moderate to severe pulmonary hypertension Status: Acute Assessment & Plan: Secondary to hypoxia and severe COPD. (5) Ecchymosis on examination Status: Acute Assessment & Plan: Ecchymosis over suprapubic region extending into the penis but not into the glans/scrotum/inguinal area. Likely related to a fall. No fracture on pelvis x-ray. (6) Pressure sore Status: Acute Assessment & Plan: Over sacrum. Staff had covered it in the ER, but was reported dime sized with superficial skin breakdown. Will do off loading measures. It is complicated by his poor nutrition and pulmonary cachexia. (7) Malnutrition Status: Chronic Assessment & Plan: The patient does not eat well. Will need to try and encourage him to eat calorie dense foods. Exam Sepsis Risk: No Definite Risk Problem Qualifiers (1) COPD (chronic obstructive pulmonary disease): COPD type: COPD with acute exacerbation Qualified Codes: J44.1 - Chronic obstructive pulmonary disease with (acute) exacerbation HANK KUHN MD Jul 04, 2018 10:46
[2018-07-04 11:08] VITALS: BP 128/84
--- NOTE | 2018-07-04 11:43 | Medical Nutrition Therapy ---
Nutrition Anthropometrics Height (Inches): 73 (No ht recorded for this visit and past visits were all different. Pt and Pt son stated that pt is 73" (6'1")) Weight (Pounds): 140 Weight (Calculated Kilograms): 63.673 BMI: 18.5 Anil Nutrition Score: Probably Inadequate Anil Nutrition Risk Score: 17 Dietary Referral Nutrition Risk Factors: Significantly Underwt. Nutrition Risk Comment: Physical Findings Physical Appearance: Underweight BMI<19 Skin Appearance Skin Appearance: Edema Edema Location Modifier: Both Edema Location: Lower Extremity Type of Edema: Degree of Edema: 2+ Gastrointestinal Symptoms GI Symtoms: Tube Present: Bowel Sounds: Recent Bowel Pattern: Stool Characteristics: Nutritional Diagnosis Nutritional Risk Acuity 1: Malnutrition (Found during physical examination on 06/29), Cachectic Nutritional Risk Acuity 2: %IBW 75-80% Nutritional Risk Acuity 3: Fair Appetite, ST I/II Pressure Ulcer, COPD Unstable Past Medical History: ETHO Abuse, smokes 2.5 packs a week, dementia, emphysema, pneumonia, hyponatremia Nutritional Acuity: 1-High Nutrition Diagnosis: Under-weight Nutrition Etiology: Inability Manage SelfCare Nutrition Problem/Etiology/Sym: Under-weight related to inability to manage selfcare as evidence by cachexia, malnutrition, BMI 18.5, pressure sores from poor nutrition and cachexia, inadequate food intake, and dementia. Energy Requirement: 1892 (MSJ: 73", 63.6kg, 1.3AF) Protein Requirement: 83 (63.63kg x 1.3g/kg) Fluid Requirement: 1892 (1ml/branden x 1892 branden) Diet Type: Diet as Tolerated ARABELLA/REG Nutrition Intervention: Cont diet as ordered, Encourage intake, Between meal supplement Diet Comment To [facility]: OFFER BOOST MILKSHAKE SUPPLEMENT FOR EVERY MEAL Nutrition Monitoring & Eval Nutrition Follow-Up: Good Intake RD Patient Assessment Time: [address] Assessment Type: RD Re-Assessment Patient Nutrition Acuity: 1-High Follow Up Date: July 07, 2018 Nutritional Comment: 06/29 Pt was readmited after falling and being unresponsive. Pt has a hx of ETHO Abuse, smokes 2.5 packs a week, dementia, emphysema, pneumonia, and hyponatremia. Pt diagnosed with altered mental state, exacerbation COPD, hyponatremia, pulmonary HTN, ecchymosis, and pressure sores due to poor nutrition and cachexia. Pt labs show a low alb of 2.6, hgb 13, Hct 39.1, and Na 130. Pt was not given a ht for this visit and past visits, pt and son stated pt gladis is 73" (6'1"). Pt was given a nutrition focused physical exam and found pt is malnourished. Pt had subcutaneous fat loss in orbital region (slightly hollow look) and in upper arm (very little space between folds and fingers touched). Pt has severe muscle loss in baptism (hollow depressions), portrusion is prominent in clavicle and acromion process, slight depression in dorsal hand region, and 3+ edema in BLE. Pt will benefit with a boost milkshake supplement with or between each meal. CD 06/30 Met with pt to talk about increasing protein and caloric intake. Pt has altered mental status and was unable to completely comprehend suggestions. Pt was given a handout for son to look over when he returned. Will continue to monitor and encourage intake. CD 07/01 Intake average 53% with occasional nutr supplment consumed. Alb declnied to 2.6. Pt cont confusion which may be affecting intake. Will cont o monitor and encourage intake. BK 07/04 Intake has improved and ranging 75-100% at most meals with occasional nutr supplment. Alb incresed to 3.3. Will cont to monitor and encourage intake. KELLY LEYVA Jul 04, 2018 11:43
[2018-07-04 13:38] VITALS: BP 123/94
[2018-07-04] MEDS: QUEtiapine FUM 25 MG TAB PO PRN ×2 (15:51→19:31)
[2018-07-04] MEDS: MELATONIN 3 MG TAB PO SCH (19:31)
[2018-07-04 19:35] VITALS: BP 141/95
[2018-07-05] MEDS: SALMETEROL/FLUTIC 500/50 1 INH INH SCH ×2 (05:23→17:03)
[2018-07-05] MEDS: LEVALBUTEROL 1.25 MG/3 ML NEB NEB SCH ×4 (05:23→17:03)
[2018-07-05] MEDS: TIOTROPIUM BROM INH 18 MCG/CAP INH SCH (05:23)
[2018-07-05] MEDS: LEVOTHYROXINE SOD 0.025 MG TAB PO SCH (06:00)
[2018-07-05 08:32] VITALS: BP 141/102
[2018-07-05] MEDS: TAMSULOSIN HCL 0.4 MG CAP PO SCH (08:36)
[2018-07-05] MEDS: ENOXAPARIN 40 MG/0.4ML SYR SC SCH (08:36)
--- NOTE | 2018-07-05 10:13 | Hospitalist Progress Note ---
Subjective Progress Notes Subjective He was admitted with altered mental status and COPD. He is sleeping this morning throughout exam. Physical Exam Vital Signs Date Time Temp Pulse Resp B/P (MAP) Pulse Ox O2 Delivery O2 Flow Rate FiO2 07/05/18 08:39 93 Nasal Cannula 2.0 07/05/18 08:32 98.0 84 18 141/102 (115) Intake and Output 07/05/18 01:00 Intake Total 0 ml Output Total 1400 ml Balance -1400 ml Intake Oral 0 ml Output Urine Total 1400 ml # Voids 5 General Appearance: No Acute Distress Respiratory: No Respiratory Distress Extremities: Warm Psych: Other (sleeping throughout exam) Result Diagram: 07/04/18 0543 07/04/1843 Assessment and Plan Problems: (1) Altered mental state Status: Acute Assessment & Plan: He presented with acute confusion and agitation. He was found at home to be without his oxygen for an unknown period of time. His mentation is somewhat worse than it had been on his previous admission. EEG was reported as normal and CT scan only showed atrophy and chronic ischemic changes. 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 It appears he would now have significant difficulty living even semi-independently. Looking at SNF faci lities. (2) COPD (chronic obstructive pulmonary disease) Status: Chronic Assessment & Plan: He is on chronic treatment with Xopenex, Spiriva, and Advair. (3) Hyponatremia Status: Chronic Assessment & Plan: Chronic - 126 today. His sodium has been running in the 125-132 range. (4) Moderate to severe pulmonary hypertension Status: Acute Assessment & Plan: Secondary to hypoxia and severe COPD. (5) Ecchymosis on examination Status: Acute Assessment & Plan: Ecchymosis over suprapubic region extending into the penis but not into the glans/scrotum/inguinal area. Likely related to a fall. No fracture on pelvis x-ray. (6) Pressure sore Status: Acute Assessment & Plan: Over sacrum. Staff had covered it in the ER, but was reported dime sized with superficial skin breakdown. Will do off loading measures. It is complicated by his poor nutrition and pulmonary cachexia. (7) Malnutrition Status: Chronic Assessment & Plan: The patient does not eat well. Will need to try and encourage him to eat calorie dense foods. Exam Sepsis Risk: No Definite Risk Problem Qualifiers (1) COPD (chronic obstructive pulmonary disease): COPD type: COPD with acute exacerbation Qualified Codes: J44.1 - Chronic obstructive pulmonary disease with (acute) exacerbation ALEXANDER CAMPBELL Jul 05, 2018 10:12
[2018-07-05 14:10] VITALS: BP 111/78
[2018-07-05 18:48] VITALS: BP 129/90
[2018-07-05] MEDS: QUEtiapine FUM 25 MG TAB PO PRN (20:35)
[2018-07-05] MEDS: MELATONIN 3 MG TAB PO SCH (20:35)
[2018-07-06] MEDS: LEVALBUTEROL 1.25 MG/3 ML NEB NEB SCH ×2 (05:32→11:49)
[2018-07-06] MEDS: TIOTROPIUM BROM INH 18 MCG/CAP INH SCH (05:32)
[2018-07-06] MEDS: SALMETEROL/FLUTIC 500/50 1 INH INH SCH (05:32)
[2018-07-06] MEDS: LEVOTHYROXINE SOD 0.025 MG TAB PO SCH (05:34)
[2018-07-06] MEDS: ENOXAPARIN 40 MG/0.4ML SYR SC SCH (09:00)
[2018-07-06] MEDS: TAMSULOSIN HCL 0.4 MG CAP PO SCH (09:43)
[2018-07-06] MEDS ORDERED: TIO18R INH (11:47)
[2018-07-06] MEDS ORDERED: LEVO25TA61 PO (11:47)
[2018-07-06] MEDS ORDERED: MELA3TAB31 PO (11:47)
--- NOTE | 2018-07-06 11:51 | Hospitalist Depart ---
Discharge Summary Reason for Hosp/Final Diag: (1) Altered mental state Status: Acute Hospital Course & Plan: He presented with acute confusion and agitation. He was found at home to be without his oxygen for an unknown period of time. His mentation is somewhat worse than it had been on his previous admission. EEG was reported as normal and CT scan only showed atrophy and chronic ischemic changes. 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 It appears he would now have significant difficulty living even semi-independently. He will be transferred to [facility] in [place] by non emergency ambulance secondary to altered mental status, along with high oxygen need. The patient requires attendant to help administer oxygen in route to facility. (2) COPD (chronic obstructive pulmonary disease) Status: Chronic Hospital Course & Plan: He is on chronic treatment with Xopenex, Spiriva, and Advair. (3) Hyponatremia Status: Chronic Hospital Course & Plan: Chronic - 126 today. His sodium has been running in the 125-132 range. (4) Moderate to severe pulmonary hypertension Status: Acute Hospital Course & Plan: Secondary to hypoxia and severe COPD. (5) Ecchymosis on examination Status: Acute Hospital Course & Plan: Ecchymosis over suprapubic region extending into the penis but not into the glans/scrotum/inguinal area. Likely related to a fall. No fracture on pelvis x-ray. (6) Pressure sore Status: Acute Hospital Course & Plan: Over sacrum. Staff had covered it in the ER, but was reported dime sized with superficial skin breakdown. Will do off loading me asures. It is complicated by his poor nutrition and pulmonary cachexia. (7) Malnutrition Status: Chronic Hospital Course & Plan: The patient does not eat well. Will need to try and encourage him to eat calorie dense foods. Departure Latest Vital Signs Vital Signs 07/05/18 07/05/18 07/06/18 18:48 19:32 04:18 Temp 98.2 Pulse 96 Resp 18 B/P (MAP) 129/90 (103) Pulse Ox 72 O2 Delivery Nasal Cannula O2 Flow Rate 4.0 Weight (Pounds): 140 Weight (Ounces): 6.0 Result Diagram: 07/04/18 0543 07/04/18 0543 Condition: Improved Discharge: Senior Living PT/OT Follow Up For: PT For Strengthening, OT For ADL's, PT Evaluation and Treat, ST Evaluation and Treat, OT Evaluation and Treat Discharge Instructions Home Meds Active Scripts Tiotropium [place] (SPIRIVA) 18 Mcg/Cap Inh, 18 MCG INH DAILY, #1 INH Prov:ALEXANDER CAMPBELL [facility] 07/06/18 Levothyroxine Sodium (LEVOTHYROXINE SODIUM) 25 Mcg Tablet, 0.025 MG PO QDAY@06, #30 TAB Prov:ALEXANDER CAMPBELL [facility] 07/06/18 Melatonin (MELATONIN) 3 Mg Tablet, 3 MG PO QHS, #30 TAB Prov:ALEXANDER CAMPBELL [facility] 07/06/18 Levalbuterol Tartrate (XOPENEX HFA) 15 Gm Hfa.aer.ad, 15 GM IH Q2H PRN for SHORTNESS OF BREATH, #1 INHALER Prov:DIONICIO RODRÍGUEZ DO 06/23/18 [Tamsulosin Hcl(*) 0.4 Mg Cap] 0.4 MG CAP No Conflict Check, 0.4 MG PO QDAY, #30 CAP Prov:DIONICIO RODRÍGUEZ DO 06/23/18 Fluticasone/Salmeterol (ADVAIR 500-50 DISKUS) 1 Each Disk.w.dev, 0 EACH INH BIDR, #1 INHALER Prov:DIONICIO RODRÍGUEZ DO 06/23/18 Reported Medications Fluticasone Prop 50 Mcg Ns (FLONASE 50 MCG NS) 16 Gm [place].susp, 1 SPRAY NS BID, BOT 06/20/18 Discontinued Scripts Ipratropium [place] 17 Mcg/Act (ATROVENT HFA 17 MCG/ACT) 12.9 Gm Inh, 12.9 GM INH Q6H, #1 INH Prov:DIONICIO RODRÍGUEZ DO 06/23/18 Prednisone 10 Mg Tab (PREDNISONE 10 MG TAB) 10 Mg Tablet, 10 MG PO DIRECTED, #30 TAB Take 4 tab daily x 3 days, then 3 tab daily x 3 days, then 2 tab daily x 3 days, then 1 tab daily x 3 days. Prov:DIONICIO RODRÍGUEZ DO 06/23/18 Diet: Regular Activity: As Tolerated Special Instructions: Wear oxygen at all times. Take medications as prescribed. Follow up with primary care provider in 2 weeks. Copies to: WILLARD GIRON DO ; Venous Thromboembolism Antithrombotics Is Pt On Any Antithrombotics?: No Problem Qualifiers (1) COPD (chronic obstructive pulmonary disease): COPD type: COPD with acute exacerbation Qualified Codes: J44.1 - Chronic obstructive pulmonary disease with (acute) exacerbation ALEXANDER CAMPBELL July 06, 2018 11:51
== END 2018-07-06 13:46 | disposition home or self-care (01) | DRG 191 ==
LOC: ER 18:42 → MED 23:04
PROVIDERS: ADMIT Internal Medicine; ATTEND Internal Medicine
DX: J44.1 Chronic obstructive pulmonary disease with (acute) exacerbation (principal); E87.1 Hypo-osmolality and hyponatremia; E46 Unspecified protein-calorie malnutrition; Z68.1 Body mass index [BMI] 19.9 or less, adult; L89.151 Pressure ulcer of sacral region, stage 1; I27.20 Pulmonary hypertension, unspecified; S30.21XA Contusion of penis, initial encounter; R09.02 Hypoxemia; R41.82 Altered mental status, unspecified; Z87.891 Personal history of nicotine dependence; Z99.81 Dependence on supplemental oxygen; Z91.81 History of falling
CPT/HCPCS: 36415; 36416; 36600; 70450; 71045; 72170; 80305; 80320; 80329; 81001; 82040; 82247; 82310; 82374; 82435; 82550; 82565; 82803; 82947; 82948; 83605; 83735; 84075; 84132; 84155; 84295; 84443; 84450; 84460; 84484; 84520; 85025; 85610; 87040; 93005; 94640; 95819; 96361; 96374; 96376; 97163; 97166; 99285; J1650; J2060; J3535; J7030; J7040

== ENCOUNTER → 2018-07-06 | Outpatient (CLI) | payer MEDICARE ==
[2018-06-21 12:57] VITALS: BMI 23.9
[~2018-07-06] MED LIST changes: +LEVO25TA61 PO; +MELA3TAB31 PO
== END ==
LOC: AMB 13:21
DX: R53.1 Weakness (principal); R06.00 Dyspnea, unspecified; R41.82 Altered mental status, unspecified
CPT/HCPCS: A0425; A0428

== ENCOUNTER 2018-07-24 10:57 | Emergency (ER) | payer MEDICARE ==
[2018-06-21 12:57] VITALS: Wt 56.2 kg
--- NOTE | 2018-07-24 11:14 | ER Report ---
History and Physical Time Seen By MD: 11:11 Hx. of Stated Complaint: PATIENT REPORTS HE NEEDS TO CHECK IN TO SEE DR. MUSE, WILL NOT GIVE A REASON WHY. FAMILY WITH HIM STATES HE HAS BEEN AGGRESSIVE AT HOME. WAS DISCHARGED FROM A FACILITY IN [place] 2 WEEKS AGO HPI/ROS CHIEF COMPLAINT: Multiple complaints HISTORY OF PRESENT ILLNESS: This is a 67-year-old male who presents to emergency department with his son and ex- for multiple complaints.The patient was seen in early June, admitted for COPD exacerbation, was discharged and then seen again on June 28 for altered mental status. Patient has a long history of alcohol abuse, 40+ year history of smoking, patient wasn't admitted to the hospital again. CT of the brain at that time showed chronic age related changes and no acute findings. After his stay at [facility], he was then transferred to [place] [facility] facility in [place] for physical therapy and occupational therapy due to the severity of his weakness and altered mental status. According the family at bedside, he just checked out of the rehabilitation center in [place] on Wednesday, against medical advice, family brought him back to [place], they were afraid to have them in their homes, including his son and ex-. He was evicted from his hotel earlier in June due to living conditions. He's stated past night in a hotel, his son has been over there several times checking on him, noted to have was given bottles in the room, he has not had any of his medications since he checked out AMA, no oxygen use an inhaler only. They state today that he's been very aggressive and agitated and threatening, he wanted to come to the hospital he is having some shortness of breath, he felt that he would be directly admitted to the hospital. I did explain to him that before we consider admission I need to run some tests. He is agreeable at this time. The family is visibly upset. He denies chest pain at this time, no fevers, he does have occasional chills, no rashes, denies headaches or blurred vision. REVIEW OF SYSTEMS: Constitutional: As above. Eyes: No discharge. ENT: No sore throat. Cardiovascular: No chest pain, no palpitations. Respiratory: As above. Gastrointestinal: No abdominal pain, no vomiting. Genitourinary: No hematuria. Musculoskeletal: No back pain. Skin: No rashes. Neurological: No headache. Psychological: As above. Allergies: Coded Allergies: No Known Drug Allergies (Verified , 06/28/18) Home Meds Active Scripts Tiotropium [place] (SPIRIVA) 18 Mcg/Cap Inh, 18 MCG INH DAILY, #1 INH Prov:ALEXANDER CAMPBELL [facility] 07/06/18 Levothyroxine Sodium (LEVOTHYROXINE SODIUM) 25 Mcg Tablet, 0.025 MG PO QDAY@06, #30 TAB Prov:ALEXANDER CAMPBELL MEDICAL STAFF MANAGER 07/06/18 Melatonin (MELATONIN) 3 Mg Tablet, 3 MG PO QHS, #30 TAB Prov:ALEXANDER CAMPBELL [facility] 07/06/18 Levalbuterol Tartrate (XOPENEX HFA) 15 Gm Hfa.aer.ad, 15 GM IH Q2H PRN for SHORTNESS OF BREATH, #1 INHALER Prov:DIONICIO RODRÍGUEZ DO 06/23/18 [Tamsulosin Hcl(*) 0.4 Mg Cap] 0.4 MG CAP No Conflict Check, 0.4 MG PO QDAY, #30 CAP Prov:DIONICIO RODRÍGUEZ DO 06/23/18 Fluticasone/Salmeterol (ADVAIR 500-50 DISKUS) 1 Each Disk.w.dev, 0 EACH INH BIDR, #1 INHALER Prov:DIONICIO RODRÍGUEZ DO 06/23/18 Reported Medications Fluticasone Prop 50 Mcg Ns (FLONASE 50 MCG NS) 16 Gm [place].susp, 1 SPRAY NS BID, BOT 06/20/18 Past Medical/Surgical History Patient has a past medical and social history of possible dementia, headaches, for a posterior smoking history, emphysema, pneumonia, COPD, BPH, arthritis, back pain, wears dentures, pressure ulcer to coccyx, alcohol abuse, were transposition tonsillectomy. Reviewed Nurses Notes: Yes Hx Smoking: Yes (2.5 pack per week) Smoking Status: Current: Every Day Smoker Hx Substance Use Disorder: No Hx Alcohol Use: Yes (HX ) Constitutional Vital Sign - Last 24 Hours 07/24/18 07/24/18 07/24/18 07/24/18 10:57 11:05 11:08 11:17 Temp 98.2 Pulse 88 99 100 Resp 16 B/P (MAP) 136/103 (114) 136/103 Pulse Ox 83 89 O2 Delivery Room Air 07/24/18 07/24/18 07/24/18 07/24/18 11:30 11:37 11:54 11:57 Pulse 96 94 94 Resp 16 B/P (MAP) 156/116 (129) Pulse Ox 90 93 07/24/18 07/24/18 07/24/18 07/24/18 12:00 12:30 12:37 12:37 Pulse 96 96 B/P (MAP) 143/105 (118) 160/108 (125) Pulse Ox 99 99 07/24/18 07/24/18 07/24/18 07/24/18 12:57 13:00 13:17 13:30 Pulse 92 94 Resp 41 12 B/P (MAP) 146/116 (126) 137/99 (112) Pulse Ox 86 90 07/24/18 07/24/18 07/24/18 07/24/18 13:37 13:57 14:00 14:16 Pulse 92 87 94 Resp 35 34 13 B/P (MAP) 148/98 (115) Pulse Ox 90 83 90 07/24/18 07/24/18 07/24/18 07/24/18 14:17 14:30 14:36 14:56 Pulse 93 90 88 Resp 18 B/P (MAP) 143/96 (112) Pulse Ox 92 91 07/24/18 07/24/18 07/24/18 07/24/18 15:00 15:16 15:30 15:36 Pulse 88 92 B/P (MAP) 138/94 (109) 140/98 (112) Pulse Ox 87 07/24/18 07/24/18 15:56 16:00 Pulse 90 B/P (MAP) 145/108 (120) Physical Exam General Appearance: The patient is alert, has no immediate need for airway protection and no signs of toxicity. Eyes: Pupils equal and round no pallor or injection. ENT, Mouth: Mucous membranes are moist. Respiratory: There are no retractions, diminished throughout, very minimal air movement. Cardiovascular: Regular rate and rhythm. No murmurs, clicks or rubs. Gastrointestinal: Abdomen is soft and non tender, no masses, bowel sounds normal. Neurological: Alert and oriented 4. Moving all extremities. Following all commands. No focal neuro deficits. Skin: Warm and dry, no rashes. Dry flaky skin to the lower extremities bilaterally, secondary to resolving lower extremity edema. Musculoskeletal: Neck is supple non tender. Extremities are nontender, nonswollen and have full range of motion. DIFFERENTIAL DIAGNOSIS: After history and physical exam differential diagnosis was considered for shortness of breath including but not limited to pulmonary infectious process, COPD, asthma, pulmonary embolus and congestive heart failure. Medical Decision Making Data Points Result Diagram: 07/24/18 1158 07/24/18 1326 Laboratory Hematology Test 07/24/18 11:58 07/24/18 13:26 Red Blood Count 4.93 M/uL (4.00-5.60) Mean Corpuscular Volume 96.8 fL (80.0-96.0) Mean Corpuscular Hemoglobin 33.1 pg (26.0-33.0) Mean Corpuscular Hemoglobin Concent 34.1 g/dL (32.0-36.0) Red Cell Distribution Width 14.0 % (11.5-14.5) Mean Platelet Volume 7.0 fL (7.2-11.1) Neutrophils (%) (Auto) 71.2 % (39.4-72.5) Lymphocytes (%) (Auto) 16.9 % (17.6-49.6) Monocytes (%) (Auto) 9.7 % (4.1-12.4) Eosinophils (%) (Auto) 1.0 % (0.4-6.7) Basophils (%) (Auto) 1.2 % (0.3-1.4) Nucleated RBC Relative Count (auto) 0.0 /100WBC Neutrophils # (Auto) 6.7 K/uL (2.0-7.4) Lymphocytes # (Auto) 1.6 K/uL (1.3-3.6) Monocytes # (Auto) 0.9 K/uL (0.3-1.0) Eosinophils # (Auto) 0.1 K/uL (0.0-0.5) Basophils # (Auto) 0.1 K/uL (0.0-0.1) Nucleated RBC Absolute Count (auto) 0.00 K/uL Chloride Level 92 mmol/L (98-107) Carbon Dioxide Level 28 mmol/L (22-30) Blood Urea Nitrogen 22 mg/dl (9-21) Creatinine 0.70 mg/dl (0.66-1.25) Glomerular Filtration Rate Calc > 60.0 Random Glucose 82 mg/dl (75-110) Calcium Level 9.4 mg/dl (8.4-10.2) Magnesium Level 1.8 mg/dl (1.7-2.2) Total Bilirubin 1.1 mg/dl (0.2-1.3) Aspartate Amino Transf (AST/SGOT) 69 U/L (0-35) Alanine Aminotransferase (ALT/SGPT) 27 U/L (0-56) Alkaline Phosphatase 101 U/L (0-126) Total Protein 8.5 g/dl (6.3-8.2) Albumin 4.8 g/dl (3.5-5.0) Salicylates Level < 10 mg/L Salicylate Last Dose Date unk Acetaminophen Level < 10 ug/ml Serum Alcohol < 10 mg/dl Sodium Level 129 mmol/L (137-145) Potassium Level 4.8 mmol/L (3.5-5.0) Chemistry Test 07/24/18 11:58 White Blood Count 9.4 k/uL (4.5-11.0) Red Blood Count 4.93 M/uL (4.00-5.60) Hemoglobin 16.3 g/dL (14.0-18.0) Hematocrit 47.7 % (42.0-52.0) Mean Corpuscular Volume 96.8 fL (80.0-96.0) Mean Corpuscular Hemoglobin 33.1 pg (26.0-33.0) Mean Corpuscular Hemoglobin Concent 34.1 g/dL (32.0-36.0) Red Cell Distribution Width 14.0 % (11.5-14.5) Platelet Count 378 K/uL (150-450) Mean Platelet Volume 7.0 fL (7.2-11.1) Neutrophils (%) (Auto) 71.2 % (39.4-72.5) Lymphocytes (%) (Auto) 16.9 % (17.6-49.6) Monocytes (%) (Auto) 9.7 % (4.1-12.4) Eosinophils (%) (Auto) 1.0 % (0.4-6.7) Basophils (%) (Auto) 1.2 % (0.3-1.4) Nucleated RBC Relative Count (auto) 0.0 /100WBC Neutrophils # (Auto) 6.7 K/uL (2.0-7.4) Lymphocytes # (Auto) 1.6 K/uL (1.3-3.6) Monocytes # (Auto) 0.9 K/uL (0.3-1.0) Eosinophils # (Auto) 0.1 K/uL (0.0-0.5) Basophils # (Auto) 0.1 K/uL (0.0-0.1) Nucleated RBC Absolute Count (auto) 0.00 K/uL Glomerular Filtration Rate Calc > 60.0 Calcium Level 9.4 mg/dl (8.4-10.2) Magnesium Level 1.8 mg/dl (1.7-2.2) Total Bilirubin 1.1 mg/dl (0.2-1.3) Aspartate Amino Transf (AST/SGOT) 69 U/L (0-35) Alanine Aminotransferase (ALT/SGPT) 27 U/L (0-56) Alkaline Phosphatase 101 U/L (0-126) Total Protein 8.5 g/dl (6.3-8.2) Albumin 4.8 g/dl (3.5-5.0) Salicylates Level < 10 mg/L Salicylate Last Dose Date unk Acetaminophen Level < 10 ug/ml Serum Alcohol < 10 mg/dl Toxicology Test 07/24/18 11:58 Salicylates Level < 10 mg/L Salicylate Last Dose Date unk Acetaminophen Level < 10 ug/ml Serum Alcohol < 10 mg/dl EKG/Imaging EKG Interpretation 12 lead EKG: Time of EKG 1247. Rhythm: Sinus rhythm, ventricular rate 87 BPM. [place]: normal QRS: Low voltage QRS. ST segments: No ST depression or elevation identified. This is different when compared to the 06/28/2018 EKG, now showing inverted T waves in V3, V4 otherwise unremarkable. Imaging PATIENT NAME: Winston Morrison : 1950 MR: [id number] V: [id number] EXAM DATE: [id number] ORDERING PHYSICIAN: HIRA BECK TECHNOLOGIST: Location: [facility] Patient: Winston Morrison : 1950 Visit/Account:[id number] Date of Sevice: 07/24/2018 CHEST PA LAT Indication: dyspnea Comparison: Chest x-ray 06/28/2018 Findings: Lungs: There is hyperinflation and flattening of the diaphragms. There is blunting of the right costophrenic angle. Lungs are clear. Mediastinum/pulmonary vasculature: Heart size and pulmonary vasculature are normal. Bones/soft tissues: Normal. IMPRESSION: 1. Findings consistent with severe COPD. 2. Blunting of the right costophrenic angle, most likely scarring versus less likely a pleural effusion. 3. No acute airspace opacity or pneumonia. Report Dictated By: Dayne Barajas at 07/24/2018 1:24 PM Report E-Signed By: Dayne Barajas at 07/24/2018 1:26 PM [id number] ED Course/Re-evaluation Clinical Indication for ER IV: IV Access ED Course The patient was admitted to room. A history and physical obtained. Differential diagnoses were considered. An IV was started. A CBC, CMP, EKG, x-ray were obtained. CBC showing MCV 96.8, initially the sodium came back as 129, potassium 6.0, AST 69, did get a call from the laboratory that the blood had hemolyzed, a repeat sodium and potassium were obtained. Repeat sodium 129 consistent with the patient's previous history, potassium 4.8. Negative serum alcohol. I did review this with the patient, as well as the negative for any acute cardiopulmonary process x-ray. I did explain to patient that I don't have an admittable diagnosis this time, after a lengthy discussion with the patient, and his ex- , she does not feel he is safe to go back to a hotel room, he does not have an apartment as he was ejected from his apartment last month. He also signed out AMA from the rehabilitation center and [place]. She does not feel that he can go to the hotel and remain safe, she states that she is willing to let him stay in her home for the next couple days, the patient is agreeable with this, I will set him up with home oxygen, we did call and leave a message with addiction social worker, they can assist with some sort of home placement for the patient as well as follow-up with his primary care provider and reinstating his medications as he has not been taking his medications for the last 2-3 days since he signed out from the [place] facility. I also talked to patient about going back to [place], patient states he would not go back to [place]. [facility] health oxygen was contacted, home oxygen tanks and concentrator were set up. Patient was discharged with his ex-. Decision to Disposition Date: July 24, 2018 Decision to Disposition Time: 14:53 Depart Departure Latest Vital Signs Vital Signs Date Time Temp Pulse Resp B/P (MAP) Pulse Ox O2 Delivery O2 Flow Rate FiO2 07/24/18 16:00 145/108 (120) 07/24/18 15:56 90 07/24/18 15:16 87 07/24/18 14:36 18 07/24/18 11:08 98.2 Room Air Impression: Primary Impression: Emphysema lung Additional Impression: COPD (chronic obstructive pulmonary disease) Condition: Improved Disposition: HOME OR SELF-CARE Referrals: WILLARD GIRON DO (PCP) 5 Days Departure Forms: ER Transition Record, Home Oxygen, Nebulizer RX, Home Oxygen Company Chosen by Patient: [facility] Oxygen Durable Medical Equipment-Oxygen: Oxygen Concentrator, Portable Oxygen Gas Reason for Use/Diagnosis: COPD, emphysema Start Date of the Order: July 24, 2018 Dosage or Concentration (if applicable) - LPM: 60 Route of Administration (if applicable): Nasal Cannula Frequency of Use: Continuous Duration Home O2 Required: 2 Duration Units: Days Room Air Oxygen Saturation: 83 ER Prescribing Physician's Name: Hira Beck NPI Numbers for Local ER MDs: [id number] Medications Reconciliation, Patient Portal Information Patient Instructions: COPD (Chronic Obstructive Pulmonary Disease) (ED), Emphysema (ED) Additional Instructions: There were no concerning findings on your laboratory studies today. We have contacted [employer] for [facility], if you have not heard from them by tomorrow afternoon please call [phone] by 2pm. You will need to usual oxygen 24 hours a day 7 days a week. Patient drink plenty of water. Get plenty of rest. Avoid alcohol. Problem Qualifiers Primary Impression: Emphysema lung Emphysema type: unspecified Qualified Codes: J43.9 - Emphysema, unspecified Additional Impression: COPD (chronic obstructive pulmonary disease) COPD type: chronic bronchitis Chronic bronchitis type: unspecified Qualified Codes: J42 - Unspecified chronic bronchitis HIRA BECK MEDICAL STAFF MANAGER- July 24, 2018 11:14
[2018-07-24] MEDS ORDERED: methylPREDNIS SUCC 125 MG/2ML IVP ONE (11:35)
[2018-07-24] MEDS ORDERED: ALBUTEROL/IPRATROPIUM 3 ML NEB NEB ONE (11:35)
[2018-07-24 12:12] LABS: PLATELET COUNT, AUTOMATED 378 K/uL (150-450)
--- NOTE | 2018-07-24 12:59 | EKG ---
FACILITY: [facility] PATIENT NAME: LOLA VINCENT : [id number] MR: [id number] V: [id number] EXAM DATE: ORDERING PHYSICIAN: MATEO BECK TECHNOLOGIST: FELIX Test Reason : HIGH potassium Blood Pressure : / mmHG Vent. Rate : 087 BPM Atrial Rate : 087 BPM P-R Int : 142 ms QRS Dur : 086 ms QT Int : 408 ms P-R-T Axes : 072 096 054 degrees QTc Int : 490 ms Sinus rhythm Poor R wave progression ST and T wave abnormality, consider anterior ischemia Abnormal ECG Confirmed by KONRAD SENIOR ([id number]) on 07/24/2018 6:37:44 PM Referred By: Confirmed By:KONRAD SENIOR
--- NOTE | 2018-07-24 13:30 | RADIOLOGY IMAGING REPORT ---
[place] [facility] [place] NAME: Winston Morrison : 1950 MR: [id number] V: [id number] EXAM DATE: ORDERING PHYSICIAN: MATEO BECK TECHNOLOGIST: Location: [facility] Patient: Winston Morrison : 1950 Visit/Account:[id number] Date of Sevice: 07/24/2018 CHEST PA LAT Indication: dyspnea Comparison: Chest x-ray 06/28/2018 Findings: Lungs: There is hyperinflation and flattening of the diaphragms. There is blunting of the right costo phrenic angle. Lungs are clear. Mediastinum/pulmonary vasculature: Heart size and pulmonary vasculature are normal. Bones/soft tissues: Normal. IMPRESSION: 1. Findings consistent with severe COPD. 2. Blunting of the right costophrenic angle, most likely scarring versus less likely a pleural effusi on. 3. No acute airspace opacity or pneumonia. Report Dictated By: Dayne Barajas at 07/24/2018 1:24 PM Report E-Signed By: Dayne Barajas at 07/24/2018 1:26 PM [id number]
[2018-07-24 16:00] VITALS: BP 145/108
== END 2018-07-24 16:41 | disposition home or self-care (01) ==
LOC: ER 11:31
DX: J43.9 Emphysema, unspecified (principal); J42 Unspecified chronic bronchitis; J44.9 Chronic obstructive pulmonary disease, unspecified
CPT/HCPCS: 36415; 71046; 83735; 84443; 85025; 93005; 94640; 96374; 99284; G0480; J2930; J7620; 80320; 80329; 82040; 82247; 82310; 82374; 82435; 82565; 82947; 84075; 84132; 84155; 84295; 84450; 84460; 84520